=== PATIENT | female | born 1950 | race Caucasian/White ===

== ENCOUNTER 2017-02-14 15:21 | Inpatient (IN) ==
[2017-02-14] MEDS ORDERED: ASPIRIN 325 MG TABLET PO STA (17:04)
[2017-02-14] MEDS ORDERED: NITROGLYCERIN 2% OINT 1 INCH/GM PACK TOP STA (17:04)
[2017-02-14] MEDS ORDERED: ASPIRIN 325 MG TABLET ONE (17:33)
[2017-02-14] MEDS ORDERED: NITROGLYCERIN 2% OINT 1 INCH/GM PACK TOP ONE (17:33)
--- NOTE | 2017-02-14 17:46 | XRay Report ---
Exam: XR chest 2V Date: 02/14/2017 5:05 PM Indication: Chest pain Comparison: 03/10/2008 Technical: PA lateral Findings: Heart is normal in size.. No obvious infiltrate or effusion. External cardiac leads are present. Superimposes exam. ASVD is present. Minimal atelectatic change and interstitial thickening in the medial right base and lateral left base Impression: 1. Atelectatic change and/or infiltrate in the medial right base and platelike atelectatic change in the left base PROCEDURE INTERPRETED AT [facility] DEPARTMENT OF RADIOLOGY Final Report Signed by: Dr. Luther Jimenez
[2017-02-14 17:48] LABS: Basophils # 0.1 10*3/uL (0.0-0.2); Basophils % 0.6 % (0.0-0.8); Eosinophils # 0.4 10*3/uL (0.0-0.87); Eosinophils % 5.1 % (0.00-10.9); Immature Granulocytes % 0.5 %; Immature Granulocytes Absolute 0.04 #; Lymphocytes # 2.5 10*3/uL (1.4-4.0); Lymphocytes % 32.3 % (21.3-54.2); Mean Corpuscular HGB Conc 33.3 GM/DL (32-36); Mean Corpuscular Hemoglobin 29 PG (27-34); Monocytes # 0.6 10*3/uL (0.11-0.8); Monocytes % 7.1 % (1.7-12.7); Neutrophils # 4.3 10*3/uL (1.4-7.4); Neutrophils % 54.4 % (38.7-73.9); Platelet Count 236 T/CUMM (130-400); Red Blood Count 4.14 MC/CUMM (3.8-5.5); Red Cell Distribution Width 13.2 % (9.3-17.3); White Blood Count 7.9 T/CUMM (4-12)
[2017-02-14 18:04] LABS: Potassium 3.7 MMOL/L (3.5-5.1)
--- NOTE | 2017-02-14 18:50 | CT Report ---
Exam: CT chest PE study Date: 02/14/2017 6:17 PM Indication: Pleurodynia Comparison: Routine chest Technical: Images were obtained from the thoracic inlet through the lung bases with 80 cc of Omnipaque 350 with axial and coronal imaging available for review. Dose reduction was performed with decreasing kv and mA and automated exposure. 3-D MIP images were obtained Findings: Thyroid gland trachea and esophagus are otherwise unremarkable The pulmonary outflow tract, left and right proximal pulmonary arteries, first-order, second-order and third order branches reveal no evidence of pulmonary thromboemboli. The lungs are demonstrated with minimal atelectatic changes in the right middle lobe and the left posterior base has some atelectatic change or small platelike atelectasis some scarring suspected in the right base posteriorly. Vascular calcinosis in the aorta and mild cardiac enlargement. The mediastinum and bony structures are intact. Liver is unremarkable. Small calcification adjacent to the splenic hilus spleen is intact the proximal kidneys and adrenal glands gallbladder and pancreas and stomach reveal no acute findings. Degenerative spondylosis change present thoracic spine Impression: 1. No evidence of pulmonary thromboemboli with minimal atelectatic change or infiltrate in the right middle lobe and platelike atelectatic change in the right midlung zone and left posterior base with mild scarring also noted. Findings correlate with routine radiograph 2. Mild cardiomegaly without decompensation 3. Degenerative spondylosis changes thoracolumbar spine PROCEDURE INTERPRETED AT [facility] DEPARTMENT OF RADIOLOGY Final Report Signed by: Dr. Luther Jimenez
--- NOTE | 2017-02-14 19:28 | Emergency Department Note ---
Maik Romo Brooke, am scribing for, and in the presence of, Fab Barton MD 16 :55. Mick Romo Doug C, MD, personally performed the services described in this documentation, ascribed by Juli Pleitez in my presence, and it is both accurate and complete 815 . Arrival - Arrival Chief Complaint: Chest Pain Stated Complaint: CHEST PAIN ED Nursing Triage Note: C/o stabbing pain under left breast radiating to left shoulder-onset yesterday. Denies SOB or N/V. Denies pain at this time. Mode of Arrival: Ambulatory Limitations: No Limitations Source: Patient, RN Notes Reviewed Time Seen by Provider: 02/14/17 16:49 - History of Present Illness HPI Narrative: Patient 66-year-old white female presents emergency room complaining of left chest pain that started last night. Patient states that it kept her awake all night long as she had recurring intermittent substernal chest pain. Patient states she is a sharp stabbing pain in the center of her chest without radiation. States pain last up to 2 minutes of the time and is not associated with any nausea, vomiting, shortness of breath or dyspnea with exertion. Patient's never had any similar pain in the past and has no history of heart problems. She denies any leg pain or swelling. She states the pain is not worsened when she takes a deep breath or coughs. She denies any fever or significant cough as well. She has no neck, shoulder or arm discomfort. Date of Last Menstrual Period: hysterectomy Allergies/Adverse Reactions: Allergies Allergy/AdvReac Type Severity Reaction Status Date / Time No Known Allergies Allergy Verified 02/14/17 15:37 Home Medications: Home Medications Medication Instructions Recorded Confirmed Type Aspirin [Ecotrin] 81 mg PO DAILY 02/14/17 02/14/17 History Bisoprolol Fumarate/Hctz 1 each PO DAILY 02/14/17 02/14/17 History [Bisoprolol-Hctz 5-6.25 mg Tab] Citalopram [CeleXA] 40 mg PO DAILY 02/14/17 02/14/17 History Fluticasone/Vilanterol [Breo 1 puff INH DAILY 02/14/17 02/14/17 History Ellipta 200-25 Mcg INH] Gabapentin 300 mg PO TID 02/14/17 02/14/17 History Glyburide/Metformin HCl 1 each PO DAILY 02/14/17 02/14/17 History [Glyburide-Metformin 2.5-500 mg] Losartan/Hydrochlorothiazide 1 each PO DAILY 02/14/17 02/14/17 History [Hyzaar 100-25 Tablet] Lovastatin 40 mg PO DAILY 02/14/17 02/14/17 History Omeprazole 20 mg PO DAILY 02/14/17 02/14/17 History rOPINIRole [Requip] 0.25 mg PO TID 02/14/17 02/14/17 History Review of System - Review of System 12 point system: reviewed and no additional remarkable complaints except as stated - Review of System Constitutional: Absent: diaphoresis, fever Respiratory: Absent: cough, respiratory distress Cardiovascular: Present: chest pain (intermittent, left sided, sharp and stabbing.). Absent: dyspnea on exertion, edema Gastrointestinal: Absent: nausea Musculoskeletal: Absent: arm pain, neck pain Skin: Absent: rash Medical,Surgical,& Family Hx - Medical History Cardio: History of: Hypertension Endocrine: History of: Diabetes Mellitus (NIDDM), Dyslipidemia - Surgical History Reproductive Surgeries: Surgical HX of;: Hysterectomy - Social History Smoking Status: Never smoker Frequency of Alcohol Use: None Type of Drug Use: None Exam Vital Signs: Vital Signs Temperature 97.8 F 02/14/17 16:30 Pulse Rate 62 02/14/17 16:30 Respiratory Rate 17 02/14/17 17:37 Blood Pressure 135/80 02/14/17 16:30 O2 Sat by Pulse Oximetry 92 L 02/14/17 16:30 - General General appearance: alert, in no apparent distress - Head Head exam: Present: atraumatic, normocephalic - Eye Eye exam: Present: normal appearance, PERRL, EOMI - ENT ENT exam: Present: normal exam - Neck Neck exam: Present: normal inspection - Chest Chest inspection: Present: normal inspection, symmetric chest wall rise - Respiratory Respiratory exam: Present: normal lung sounds bilaterally - Cardiovascular Cardiovascular exam: Present: regular rate, normal rhythm, normal heart sounds - Abdominal Exam Abdominal exam: Present: soft. Absent: distention, tenderness - Extremities Exam Extremities exam: Present: normal inspection - Back Exam Back exam: Present: normal inspection - Neurological Exam Neurological exam: Present: alert, oriented X3, CN II-XII intact. Absent: motor sensory deficit - Psychiatric Psychiatric exam: Present: normal affect, normal mood - Skin Skin exam: Present: warm, dry, intact, normal color Course Course Narrative: Patient's clinical presentation, laboratory and radiographic findings were discussed with Dr. Marichuy Mejia. Patient will be admitted to the services of Dr. Omer who will see the patient here in the emergency room. Results - Labs CBC & BMP: 02/14/17 17:23 02/14/17 17:23 Lab Results: I have reviewed the patients labs Labs: Laboratory Tests 02/14/17 03 17:23 17:23 D-Dimer, Quantitative <= 0.5 Creatinine 0.50 L Calculated Osmolality 270.0 L Laboratory Tests 02/14/17 17:23 B-Natriuretic Peptide 35 - EKG EKG results: interpreted by ROSI, normal QRS, normal ST/T, no acute changes - Diagnostic Findings Procedure: Chest x-ray: report reviewed by me (1. Atelectatic change and/or infiltrate in the medial right base and platelike atelectatic change in the left base.), CT - chest: report reviewed by me (1. No evidence of pulmonary thromboemboli with minimal atelectatic change or infiltrate in the right middle lobe and platelike atelectatic change in the right midlung zone and left posterior base with mild scarring also noted. Findings correlate with routine radiograph. 2. Mild cardiomegaly without decompensation. 3. Degenerative spondylosis changes thoracolumbar spine.) Disposition Clinical Impression: Chest pain Case discussed with: patient, patient's family Disposition: Still a Patient Condition: Stable Time of Disposition: 19:28
--- NOTE | 2017-02-14 19:56 | Hospitalist History & Physical ---
Assessment and Plan (1) Chest pain Status: Acute Assessment and plan: to r/o MO. Patient has multiple risk factors for CAD.CT chest ruled out a PE. Plan Telemetry serial cardiac enzymes asa, statins resume home meds-ACEI, BBlocker PPIs nitrates lovenox Lipid, TSH, UA Echo Consider a stress test as outpatient Current Visit: Yes (2) Pneumonia involving right lung Status: Acute Assessment and plan: will treat as community acquired pneumonia CT chest showed no PE but showed a minimal atelectatic change or infiltrate in the right middle lobe and platelike atelectatic change in the right mid lung zone and left posterior base with mild scarring plan -IV Levaquin -Influenza A and B titres -Duonebs prn -blood cultures -sputum cultures - Current Visit: Yes (3) HTN (hypertension) Status: Acute Assessment and plan: will resume home meds Current Visit: Yes (4) IDDM (insulin dependent diabetes mellitus) Status: Acute Assessment and plan: will resume home meds, place on SSC insulin, accuchecks, get HbA1c level Current Visit: Yes (5) Dyslipidemia Status: Acute Assessment and plan: will resume statins get Lipids Current Visit: Yes (6) Asthma Status: Acute Assessment and plan: not in any acute exacerbation, will resume home meds Current Visit: Yes (7) Restless leg syndrome Status: Acute Assessment and plan: resume home meds Current Visit: Yes History of Present Illness Chief complaint: chest pain History of present illness: Ms. Morales is a 66 year old female with a history of HTN, NIDDM, rest leg syndrome,dyslipidemia, asthma who presented to the ER with chestpain. Patient was well until yesterday afternoon when she developed a chestpain. Pain is located in the left anterior wall, feels like something sticking into her heart , non radiating and as since been on and off. There are no known aggravating or relieving factors. There is no associated history of palpitation, nausea, vomiting, fever, cough, tingling sensation of her left arm and no diaphoresis. Patient gets SOB every now and then due to her underlying asthma. She denies a previous history of MO and has no known family history of CAD. No leg swelling and no bleeding problems. Patient was worried that pain did not go away so she decided to report to the ER.Upon arrival, troponin was negative, D-dimer was negative, CXR showed atelectatic change and or infiltrate in the medial right base and platelike atelectatic change in the left base.CT chest showed no PE but showed a minimal atelectatic change or infiltrate in the right middle lobe and platelike atelectatic change in the right mid lung zone and left posterior base with mild scarring.She was given aspirin and nitroglycerin and currently on admission for further evaluation. Home Medications Medication Instructions Recorded Confirmed Type Aspirin [Ecotrin] 81 mg PO DAILY 02/14/17 02/14/17 History Bisoprolol Fumarate/Hctz 1 each PO DAILY 02/14/17 02/14/17 History [Bisoprolol-Hctz 5-6.25 mg Tab] Citalopram [CeleXA] 40 mg PO DAILY 02/14/17 02/14/17 History Fluticasone/Vilanterol [Breo 1 puff INH DAILY 02/14/17 02/14/17 History Ellipta 200-25 Mcg INH] Gabapentin 300 mg PO TID 02/14/17 02/14/17 History Glyburide/Metformin HCl 1 each PO DAILY 02/14/17 02/14/17 History [Glyburide-Metformin 2.5-500 mg] Losartan/Hydrochlorothiazide 1 each PO DAILY 02/14/17 02/14/17 History [Hyzaar 100-25 Tablet] Lovastatin 40 mg PO DAILY 02/14/17 02/14/17 History Omeprazole 20 mg PO DAILY 02/14/17 02/14/17 History rOPINIRole [Requip] 0.25 mg PO TID 02/14/17 02/14/17 History Allergies Allergy/AdvReac Type Severity Reaction Status Date / Time No Known Allergies Allergy Verified 02/14/17 15:37 Medical,Surgical,& Family Hx - Medical History Cardio: History of: Hypertension Endocrine: History of: Diabetes Mellitus (NIDDM), Dyslipidemia - Surgical History Reproductive Surgeries: Surgical HX of;: Hysterectomy - Social History Smoking Status: Never smoker Frequency of Alcohol Use: None Type of Drug Use: None 12 point system: reviewed and no additional remarkable complaints except as stated Exam - Constitutional Vitals: Period Temp Pulse Resp BP Sys/Wilkins Pulse Ox Last 24 Hr 97.8 F-97.9 F 62-62 17-20 135-144/73-80 92-94 General appearance: no acute distress - Head Head exam: Present: normal inspection - Neck Neck exam: Present: normal inspection - Respiratory Respiratory exam: Present: clear to auscultation bilaterally - Cardiovascular Cardiovascular exam: Present: regular rate and rhythm - GI/Abdominal GI/Abdominal exam: Present: normal bowel sounds - Extremities Exam Extremities exam: Present: normal inspection - Back Exam Back exam: Present: normal inspection - Neurological Exam Neurological exam: Present: alert, oriented X3 - Psychiatric Psychiatric exam: Present: normal affect Results - Labs CBC & BMP: 02/14/17 17:23 02/14/17 17:23 Lab Results: I have reviewed the past 24 hour labs
[2017-02-14] MEDS ORDERED: ENOXAPARIN 40 MG/0.4 ML SYRINGE SUBCUT SCH (21:00)
[2017-02-14] MEDS ORDERED: NITROGLYCERIN SL 0.4 MG TABLET SL STA (21:28)
[2017-02-14] MEDS ORDERED: GLUCAGON 1 MG VIAL IM PRN ×2 (21:28)
[2017-02-14] MEDS ORDERED: ACETAMINOPHEN 325 MG TABLET PO PRN (21:28)
[2017-02-14] MEDS ORDERED: ZALEPLON 5 MG CAPSULE PO PRN (21:28)
[2017-02-14] MEDS ORDERED: ALBUTEROL/IPRATROPIUM 3 ML NEB RESP TX PRN (21:28)
[2017-02-14] MEDS ORDERED: DEXTROSE 50% 25 GM/50 ML VIAL IV PRN ×2 (21:28)
[2017-02-14] MEDS ORDERED: LEVOFLOXACIN INJ 750 MG in PREMIX 1 EACH IV SCH (22:00)
[2017-02-14] MEDS: GABAPENTIN 300 MG CAPSULE PO SCH (22:06)
[2017-02-14] MEDS: rOPINIRole 0.25 MG TABLET PO SCH (22:06)
[2017-02-14] MEDS: INSULIN REGULAR 100 UNIT/ML SUBCUT SCH (22:07)
[2017-02-14 23:02] LABS: Apearance,Urine CLEAR (Clear); Bilirubin,Urine Negative (Negative); Blood, Urine Negative (Negative); Glucose,Urine (UA) Negative (Negative); Ketones,Urine Negative (Negative); Nitrite,Urine Negative (Negative); Protein,Urine Negative; RBC,Urine <1 /HPF (0-4); Urine Color Straw (Yellow); Urine Specific Gravity 1.021 (1.001-1.035); Urine Urobilinogen < 2.0 EU/DL (0.2-1.0); WBC,Urine <1 /HPF (0-6)
[2017-02-14 23:21] LABS: Troponin I Only < 0.015 NG/ML (0.00-0.045)
[2017-02-14 23:28] LABS: Risk Ratio 2.89; Thyroid Stimulating Hormone 2.72 uIU/ml (0.358-3.74); VLDL CHOLESTEROL 22.2 MG/DL
[2017-02-15 04:39] LABS: Basophils % 0.3 % (0.0-0.8); Eosinophils # 0.1 10*3/uL (0.0-0.87); Eosinophils % 1.2 % (0.00-10.9); Hematocrit 35.9 VOL% (35.7-47.0); Hemoglobin 12.1 GM/DL (12.0-16.0); Immature Granulocytes % 0.6 %; Immature Granulocytes Absolute 0.06 #; Lymphocytes # 1.5 10*3/uL (1.4-4.0); Lymphocytes % 14.2 % (21.3-54.2); Mean Corpuscular HGB Conc 33.7 GM/DL (32-36); Mean Corpuscular Hemoglobin 29 PG (27-34); Mean Corpuscular Volume 84.9 FL (87-102); Mean Platelet Volume 10.9 FL (9.6-12.0); Monocytes # 0.9 10*3/uL (0.11-0.8); Monocytes % 7.8 % (1.7-12.7); Neutrophils # 8.3 10*3/uL (1.4-7.4); Neutrophils % 75.9 % (38.7-73.9); Platelet Count 242 T/CUMM (130-400); Red Blood Count 4.23 MC/CUMM (3.8-5.5); Red Cell Distribution Width 13.3 % (9.3-17.3); White Blood Count 10.9 T/CUMM (4-12)
[2017-02-15 05:07] LABS: Albumin 3.8 G/DL (3.4-5.0); Bilirubin,Total 0.9 MG/DL (0.2-1.0); Calcium 8.7 MG/DL (8.5-10.1); Total Protein 6.2 G/DL (6.4-8.3)
[2017-02-15 05:08] LABS: Potassium 3.8 MMOL/L (3.5-5.1)
[2017-02-15] MEDS: rOPINIRole 0.25 MG TABLET PO SCH ×2 (08:35→14:59)
[2017-02-15] MEDS: GABAPENTIN 300 MG CAPSULE PO SCH ×2 (08:35→14:59)
[2017-02-15] MEDS: INSULIN REGULAR 100 UNIT/ML SUBCUT SCH ×2 (08:44→12:05)
[2017-02-15] MEDS ORDERED: AZITHROMYCIN 250 MG TABLET PO ONE (08:55)
[2017-02-15] MEDS ORDERED: LOVASTATIN 20 MG TABLET PO SCH (09:00)
[2017-02-15] MEDS ORDERED: BISOPROLOL/HCTZ 5-6.25 MG TABLET PO SCH (09:00)
[2017-02-15] MEDS ORDERED: NON-FORMULARY MEDICATION (Fluticasone/Vilanterol [Breo Ellipta 200-25 Mcg Inh] 1 PUFF) INH SCH (09:00)
[2017-02-15] MEDS ORDERED: ASPIRIN EC 81 MG TABLET PO SCH (09:00)
[2017-02-15] MEDS ORDERED: PANTOPRAZOLE 40 MG TABLET PO SCH (09:00)
[2017-02-15] MEDS ORDERED: glyBURIDE/METFORMIN 2.5-500 MG TABLET PO SCH (09:00)
[2017-02-15] MEDS ORDERED: cefTRIAXone 1,000 MG in SODIUM CHLORIDE 0.9% 100 ML IV SCH (09:00)
[2017-02-15] MEDS ORDERED: CITALOPRAM 40 MG TABLET PO SCH (09:00)
[2017-02-15] MEDS ORDERED: LOSARTAN/HCTZ 50-12.5 MG TABLET PO SCH (09:00)
--- NOTE | 2017-02-15 09:21 | EKG Report ---
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
--- NOTE | 2017-02-15 10:13 | Hospitalist Progress Note ---
Assessment and Plan (1) Chest pain Status: Acute Current Visit: Yes (2) Pneumonia involving right lung Status: Acute Current Visit: Yes (3) HTN (hypertension) Status: Acute Current Visit: Yes (4) IDDM (insulin dependent diabetes mellitus) Status: Acute Current Visit: Yes Hospitalist: Subjective Interval history: No acute events overnight. Reports that her chest pain has eased up. Troponins have remained negative. Will order echo. Will also consult cardiology for possible stress test inpatient or outpatient. Also with pneumonia. Appears to have had a bad reaction to Levaquin. Will switch to rocpehin and azithromycin while inpatient. Exam - Constitutional Vitals: Period Temp Pulse Resp BP Sys/Wilkins Pulse Ox Last 24 Hr 96.0 F-98.2 F 51-58 16-20 91-150/49-70 91-99 General appearance: over weight - Head Head exam: Present: normal inspection, normocephalic - Eye Eye exam: Present: EOMI Pupils: Present: LEONELA - ENT ENT exam: Present: normal exam - Neck Neck exam: Present: normal inspection. Absent: tenderness - Respiratory Respiratory exam: Present: clear to auscultation bilaterally. Absent: rhonchi, wheezes - Cardiovascular Cardiovascular exam: Present: regular rate and rhythm - GI/Abdominal GI/Abdominal exam: Present: normal bowel sounds, soft. Absent: tenderness, rebound - Extremities Exam Extremities exam: Present: normal inspection - Back Exam Back exam: Present: normal inspection - Neurological Exam Neurological exam: Present: alert, oriented X3 - Psychiatric Psychiatric exam: Present: normal affect, normal mood - Skin Skin exam: Present: warm, intact Results - Labs CBC & BMP: 02/15/17 04:23 02/15/17 04:23
--- NOTE | 2017-02-15 11:12 | ECHO Report ---
Quentin Morales Exam Date: 02/15/2017 09:52 Referring Physician: Technologist: Gris Bee Age: 67 Ht (in): 62 Wt (lb): 136 Gender: F Exam Location: [facility] Echo Indications: Dyslipidemia, asthma, chest pain, Rt. lung pneumonia, Htn, IDDM BP: 91 / 49 HR: 58 Rhythm: Sinus Technical Quality: Fair IMPRESSIONS Normal left ventricular cavity size. Moderate concentric left ventricular hypertrophy with diastolic dysfunction. Left ventricular ejection fraction is estimated at 50-55 %. Normal right ventricular size. Normal right atrial size. Normal left atrial size. Mildly thickened mitral valve with mild mitral regurgitation. Mild aortic valve sclerosis without stenosis or regurgitation. Morphologically normal tricuspid valve. Tricuspid regurgitation velocities suggest a PAP of 19.9 mmHg + RAP. Mild tricuspid valve regurgitation. Morphologically normal pulmonic valve. Trace pulmonary valve regurgitation. No pericardial effusion. Normal size aortic root and proximal ascending aorta. MEASUREMENTS (Male / Female) Normal Values 2D ECHO LV Diastolic Diameter PLAX 3.6 cm 4.2 - 5.9 / 3.9 - 5.3 cm LV Systolic Diameter PLAX 2.5 cm LV Fractional Shortening PLAX 29.4 % IVS Diastolic Thickness 1.6 cm 0.6 - 1.0 / 0.6 - 0.9 cm LVPW Diastolic Thickness 1.4 cm 0.6 - 1.0 / 0.6 - 0.9 cm RV Internal Dim ED PLAX 2.9 cm Aortic Root Diameter 2.2 cm LA Systolic Diameter LX 4.0 cm 3.0 - 4.0 / 2.7 - 3.8 cm DOPPLER TR Peak Velocity 223.0 cm/s TR Peak Gradient 19.9 mmHg FINDINGS Left Ventricle Normal left ventricular cavity size. Moderate concentric left ventricular hypertrophy with diastolic dysfunction. Left ventricular ejection fraction is estimated at 50-55 %. Right Ventricle Normal right ventricular size. Right Atrium Normal right atrial size. Left Atrium Normal left atrial size. Mitral Valve Mildly thickened mitral valve with mild mitral regurgitation. Aortic Valve Mild aortic valve sclerosis without stenosis or regurgitation. Tricuspid Valve Morphologically normal tricuspid valve. Mild tricuspid valve regurgitation. Tricuspid regurgitation velocities suggest a PAP of 19.9 mmHg + RAP. Pulmonic Valve Morphologically normal pulmonic valve. Trace pulmonary valve regurgitation. Pericardium No pericardial effusion. Aorta Normal size aortic root and proximal ascending aorta. Braeden Monet MD (Electronically Signed) Final Date: 15 February 2017 11:11
--- NOTE | 2017-02-15 11:52 | Cardiology Consult Note ---
Assessment and Plan (1) Abnormal ECG Status: Acute Current Visit: Yes (2) Chest pain Status: Acute Assessment and plan: This patient has atypical chest pain with risk factors for premature coronary disease. We will check 1 more set of isoenzymes and if her troponin is negative she can be discharged to follow-up with me in 1 month with a stress nuclear study for review. She might benefit from a course of nonsteroidals. His pain sounds musculoskeletal/pleuritic to me. Current Visit: Yes (3) HTN (hypertension) Status: Acute Current Visit: Yes (4) IDDM (insulin dependent diabetes mellitus) Status: Acute Current Visit: Yes History of Present Illness - Data of Consult Patient: new to practice - Consult Narrative Reason for consult: Atypical chest pain History of present illness: Ms. Morales is a 67 year old female who has a history of hypertension and diabetes as well as dyslipidemia and presents with a one-week history of atypical chest pain which she describes as a point tenderness in the left parasternal region which is episodic and lancinating and sharp and not anginal in nature. The pain is not related to exertion or activity. She has no limitation related to exertional ability and is active. She has had 2 negative troponins and her EKG is unrevealing. She has not had recent fever chills cough or sputum. She denies a history of blood clots or swelling of the leg or immobility. She has not had any recent fever or chills. She has had cold symptoms but no palpitations or syncope. CC: Renuka Bradley MD - Home Medications and Allergies Home Medications: Home Medications Medication Instructions Recorded Confirmed Type Aspirin [Ecotrin] 81 mg PO DAILY 02/14/17 02/14/17 History Bisoprolol Fumarate/Hctz 1 each PO DAILY 02/14/17 02/14/17 History [Bisoprolol-Hctz 5-6.25 mg Tab] Citalopram [CeleXA] 40 mg PO DAILY 02/14/17 02/14/17 History Fluticasone/Vilanterol [Breo 1 puff INH DAILY 02/14/17 02/14/17 History Ellipta 200-25 Mcg INH] Gabapentin 300 mg PO TID 02/14/17 02/14/17 History Glyburide/Metformin HCl 1 each PO DAILY 02/14/17 02/14/17 History [Glyburide-Metformin 2.5-500 mg] Losartan/Hydrochlorothiazide 1 each PO DAILY 02/14/17 02/14/17 History [Hyzaar 100-25 Tablet] Lovastatin 40 mg PO DAILY 02/14/17 02/14/17 History Omeprazole 20 mg PO DAILY 02/14/17 02/14/17 History rOPINIRole [Requip] 0.25 mg PO TID 02/14/17 02/14/17 History Allergies/Adverse Reactions: Allergies Allergy/AdvReac Type Severity Reaction Status Date / Time No Known Allergies Allergy Verified 02/14/17 15:37 Medical,Surgical,& Family Hx - Medical History Cardio: History of: Hypertension Endocrine: History of: Diabetes Mellitus (NIDDM), Dyslipidemia - Surgical History Reproductive Surgeries: Surgical HX of;: Hysterectomy - Social History Smoking Status: Never smoker Frequency of Alcohol Use: None Type of Drug Use: None Physical Examination Vital Signs Temp Pulse Resp BP Pulse Ox 97.9 F 62 18 144/73 94 L 02/14/17 15:33 02/14/17 15:33 02/14/17 15:33 02/14/17 15:33 02/14/17 15:33 Other: Physical examination: General: The patient is awake and alert and oriented -3. Mood and affect are normal. HEENT: Normocephalic, sclera are clear there are no lid xanthelasmas noted. Oral mucosa is free of cyanosis or pallor. Neck: The neck is supple without JVD. Carotid upstrokes are normal volume and amplitude. There is no audible bruit. There is no palpable thyroid. Trachea is midline. Chest: Lungs: The patient is comfortable at rest without intercostal retractions or abdominal breathing. There are no adventitial sounds rales rubs rhonchi or wheezes noted. Cardiovascular: The PMI is nondisplaced. No palpable thrill S3 or S4. There is a regular rate and rhythm with no murmur rub or gallop noted. Dorsalis pedis posterior tibial and femoral pulses are 2+ and equal bilaterally. Abdomen: Abdomen is soft and nontender with normal active bowel sounds. There is no palpable mass or organomegaly noted. There is no midline bruit. Extremities exam: There is no cyanosis clubbing or edema. Skin: Skin is warm and dry without ecchymosis or urticaria or skin rash. There are no palpable nodules. Musculoskeletal: There is no kyphosis or scoliosis noted. Result/EKG - Labs CBC & BMP: 02/15/17 04:23 02/15/17 04:23 Labs: Laboratory Results - last 24 hr 02/14/17 02/14/17 02/14/17 21:46 21:58 22:39 WBC RBC Hgb Hct MCV MCH MCHC RDW Plt Count MPV Neut % (Auto) Lymph % (Auto) [place] % (Auto) Eos % (Auto) Baso % (Auto) Neut # (Auto) Lymph # (Auto) [place] # (Auto) Eos # (Auto) Baso # (Auto) Immature Gran % Nucleated RBC % Immature Gran # Nucleated RBCs # Sodium Potassium Chloride Carbon Dioxide Anion Gap BUN Creatinine GFR Calculation BUN/Creatinine Ratio Glucose POC Glucose 107 H Hemoglobin A1c Calculated Osmolality Calcium Total Bilirubin AST ALT Alkaline Phosphatase Total Creatine Kinase CK-MB (CK-2) Troponin I < 0.015 Total Protein Albumin Globulin Albumin/Globulin Ratio Triglycerides Cholesterol LDL Cholesterol VLDL Cholesterol HDL Cholesterol Heart Disease Risk Ratio TSH 3rd Generation Urine Color Straw Urine Appearance Clear Urine pH 7.0 Ur Specific [place] 1.021 Urine Protein Negative Urine Glucose (UA) Negative Urine Ketones Negative Urine Blood Negative Urine Nitrate Negative Urine Bilirubin Negative Urine Urobilinogen < 2.0 H Urine Leukocytes Negative Urine RBC <1 Urine WBC <1 Ur Culture Indicated? Not indicated 02/14/17 02/14/17 02/14/17 22:39 22:39 22:39 WBC RBC Hgb Hct MCV MCH MCHC RDW Plt Count MPV Neut % (Auto) Lymph % (Auto) [place] % (Auto) Eos % (Auto) Baso % (Auto) Neut # (Auto) Lymph # (Auto) [place] # (Auto) Eos # (Auto) Baso # (Auto) Immature Gran % Nucleated RBC % Immature Gran # Nucleated RBCs # Sodium Potassium Chloride Carbon Dioxide Anion Gap BUN Creatinine GFR Calculation BUN/Creatinine Ratio Glucose POC Glucose Hemoglobin A1c 6.9 H Calculated Osmolality Calcium Total Bilirubin AST ALT Alkaline Phosphatase Total Creatine Kinase 41 CK-MB (CK-2) < 1.0 Troponin I < 0.015 Total Protein Albumin Globulin Albumin/Globulin Ratio Triglycerides 111 Cholesterol 153 LDL Cholesterol 92.0 VLDL Cholesterol 22.2 HDL Cholesterol 53 Heart Disease Risk Ratio 2.89 TSH 3rd Generation 2.720 Urine Color Urine Appearance Urine pH Ur Specific [place] Urine Protein Urine Glucose (UA) Urine Ketones Urine Blood Urine Nitrate Urine Bilirubin Urine Urobilinogen Urine Leukocytes Urine RBC Urine WBC Ur Culture Indicated? 02/15/17 02/15/17 02/15/17 04:23 04:23 07:46 WBC 10.9 D RBC 4.23 Hgb 12.1 Hct 35.9 MCV 84.9 L MCH 29 MCHC 33.7 RDW 13.3 Plt Count 242 MPV 10.9 Neut % (Auto) 75.9 H Lymph % (Auto) 14.2 L [place] % (Auto) 7.8 Eos % (Auto) 1.2 Baso % (Auto) 0.3 Neut # (Auto) 8.3 H Lymph # (Auto) 1.5 [place] # (Auto) 0.9 H Eos # (Auto) 0.1 Baso # (Auto) 0.0 Immature Gran % 0.6 Nucleated RBC % 0.0 Immature Gran # 0.06 Nucleated RBCs # 0.00 Sodium 136 Potassium 3.8 Chloride 98 Carbon Dioxide 28 Anion Gap 13.8 BUN 13 Creatinine 0.60 GFR Calculation 88 BUN/Creatinine Ratio 21.00 H Glucose 157 H POC Glucose 103 Hemoglobin A1c Calculated Osmolality 274.0 Calcium 8.7 Total Bilirubin 0.90 AST 7 ALT 14 Alkaline Phosphatase 62 Total Creatine Kinase CK-MB (CK-2) Troponin I Total Protein 6.2 L Albumin 3.8 Globulin 2.4 Albumin/Globulin Ratio 1.5 Triglycerides Cholesterol LDL Cholesterol VLDL Cholesterol HDL Cholesterol Heart Disease Risk Ratio TSH 3rd Generation Urine Color Urine Appearance Urine pH Ur Specific [place] Urine Protein Urine Glucose (UA) Urine Ketones Urine Blood Urine Nitrate Urine Bilirubin Urine Urobilinogen Urine Leukocytes Urine RBC Urine WBC Ur Culture Indicated? - EKG EKG results: interpreted by me (Sinus rhythm with equivocal changes suggesting old inferior [place] with minor nonspecific ST-T change)
[2017-02-15 12:01] VITALS: BP 130/60
--- NOTE | 2017-02-15 14:39 | Discharge Summary ---
Hospital Course - Hospital Course Hospital Course: Ms. Morales is a 66 year old female with a history of HTN, NIDDM, rest leg syndrome,dyslipidemia, asthma who presented to the ER with chestpain. Patient was well until the afternoon before when she developed a chestpain. Pain was located in the left anterior wall, felt like something sticking into her heart, non radiating and has since been on and off. There were no known aggravating or relieving factors. There was no associated history of palpitation, nausea, vomiting, fever, cough, tingling sensation of her left arm and no diaphoresis. Patient gets SOB every now and then due to her underlying asthma. She denies a previous history of LA and has no known family history of CAD. In the Emergency Department, troponin was negative, D-dimer was negative, CXR showed atelectatic change and or infiltrate in the medial right base and platelike atelectatic change in the left base. CT chest showed no PE but showed a minimal atelectatic change or infiltrate in the right middle lobe and platelike atelectatic change in the right mid lung zone and left posterior base with mild scarring. She was given aspirin and nitroglycerin. She was admitted to the hospitalist service for chest pain, rule out acute coronary syndrome. This morning patient is pain free. Serial troponins are negative. Cardiology was consulted. She will follow-up with cardiology in one month for possible stress testing. She has now reached maximum benefit of inpatient stay and will be discharged home. She will be discharged on azithromycin for pneumonia treatment. - Time spent with patient Time with patient DS: Less than 30 minutes Diagnosis - Discharge Diagnosis (1) Chest pain Status: Resolved (2) Pneumonia involving right lung Status: Acute (3) HTN (hypertension) Status: Chronic (4) IDDM (insulin dependent diabetes mellitus) Status: Chronic Specialty Discharge - Follow Up or Referrals Follow up with: Braeden Monet MD [Physician] - 1 Month Discharge Plan - Discharge Data Condition at Discharge: Stable Discharge Diet: advance to your usual diet Activity: resume usual activities as tolerated Hygiene: no restrictions Weight Bearing at Discharge: weight bear as tolerated Driving: no restrictions Contact your physician if you experience:: fever over 101, Nausea/Vomiting, pain uncontrolled by pain medications - Discharge Medications New Azithromycin Tab [Zithromax Tab] 250 mg PO DAILY #4 tablet Continue Glyburide/Metformin HCl [Glyburide-Metformin 2.5-500 mg] 1 each PO DAILY Gabapentin 300 mg PO TID Fluticasone/Vilanterol [Breo Ellipta 200-25 Mcg INH] 1 puff INH DAILY rOPINIRole [Requip] 0.25 mg PO TID Omeprazole 20 mg PO DAILY Lovastatin 40 mg PO DAILY Losartan/Hydrochlorothiazide [Hyzaar 100-25 Tablet] 1 each PO DAILY Aspirin [Ecotrin] 81 mg PO DAILY Bisoprolol Fumarate/Hctz [Bisoprolol-Hctz 5-6.25 mg Tab] 1 each PO DAILY Citalopram [CeleXA] 40 mg PO DAILY - Follow Up or Referral - Forms/Instructions Exam - Constitutional Vitals: Period Temp Pulse Resp BP Sys/Wilkins Pulse Ox Last 24 Hr 96.0 F-98.5 F 51-58 16-22 91-150/49-70 91-99 General appearance: over weight - Head Head exam: Present: normocephalic, atraumatic - Eye Eye exam: Present: EOMI Pupils: Present: LEONELA - ENT ENT exam: Present: normal exam - Neck Neck exam: Present: normal inspection. Absent: tenderness - Respiratory Respiratory exam: Present: clear to auscultation bilaterally. Absent: rhonchi, wheezes - Cardiovascular Cardiovascular exam: Present: regular rate and rhythm - GI/Abdominal GI/Abdominal exam: Present: normal bowel sounds, soft. Absent: tenderness, rebound - Extremities Exam Extremities exam: Present: normal inspection - Back Exam Back exam: Present: normal inspection - Neurological Exam Neurological exam: Present: alert, oriented X3 - Psychiatric Psychiatric exam: Present: normal affect, normal mood - Skin Skin exam: Present: warm, intact Discharge Results Procedures and tests throughout hospitalization: Pending Orders 02/14/17 21:28 Influenza A & B Antigen Panel Routine Sputum Culture and Gram Stain Routine 02/14/17 22:38 Blood Culture Routine Labs on day of discharge: Labs from last 24 hours 02/15/17 02/15/17 02/15/17 12:19 07:46 04:23 WBC RBC Hgb Hct MCV MCH MCHC RDW Plt Count MPV Neut % (Auto) Lymph % (Auto) [place] % (Auto) Eos % (Auto) Baso % (Auto) Neut # (Auto) Lymph # (Auto) [place] # (Auto) Eos # (Auto) Baso # (Auto) Immature Gran % Nucleated RBC % Immature Gran # Nucleated RBCs # Sodium 136 Potassium 3.8 Chloride 98 Carbon Dioxide 28 Anion Gap 13.8 BUN 13 Creatinine 0.60 GFR Calculation 88 BUN/Creatinine Ratio 21.00 H Glucose 157 H POC Glucose 103 Hemoglobin A1c Calculated Osmolality 274.0 Calcium 8.7 Total Bilirubin 0.90 AST 7 ALT 14 Alkaline Phosphatase 62 Total Creatine Kinase CK-MB (CK-2) Troponin I < 0.015 Total Protein 6.2 L Albumin 3.8 Globulin 2.4 Albumin/Globulin Ratio 1.5 Triglycerides Cholesterol LDL Cholesterol VLDL Cholesterol HDL Cholesterol Heart Disease Risk Ratio TSH 3rd Generation Urine Color Urine Appearance Urine pH Ur Specific [place] Urine Protein Urine Glucose (UA) Urine Ketones Urine Blood Urine Nitrate Urine Bilirubin Urine Urobilinogen Urine Leukocytes Urine RBC Urine WBC Ur Culture Indicated? 02/15/17 02/14/17 02/14/17 04:23 22:39 22:39 WBC 10.9 D RBC 4.23 Hgb 12.1 Hct 35.9 MCV 84.9 L MCH 29 MCHC 33.7 RDW 13.3 Plt Count 242 MPV 10.9 Neut % (Auto) 75.9 H Lymph % (Auto) 14.2 L [place] % (Auto) 7.8 Eos % (Auto) 1.2 Baso % (Auto) 0.3 Neut # (Auto) 8.3 H Lymph # (Auto) 1.5 [place] # (Auto) 0.9 H Eos # (Auto) 0.1 Baso # (Auto) 0.0 Immature Gran % 0.6 Nucleated RBC % 0.0 Immature Gran # 0.06 Nucleated RBCs # 0.00 Sodium Potassium Chloride Carbon Dioxide Anion Gap BUN Creatinine GFR Calculation BUN/Creatinine Ratio Glucose POC Glucose Hemoglobin A1c 6.9 H Calculated Osmolality Calcium Total Bilirubin AST ALT Alkaline Phosphatase Total Creatine Kinase 41 CK-MB (CK-2) < 1.0 Troponin I < 0.015 Total Protein Albumin Globulin Albumin/Globulin Ratio Triglycerides Cholesterol LDL Cholesterol VLDL Cholesterol HDL Cholesterol Heart Disease Risk Ratio TSH 3rd Generation Urine Color Urine Appearance Urine pH Ur Specific [place] Urine Protein Urine Glucose (UA) Urine Ketones Urine Blood Urine Nitrate Urine Bilirubin Urine Urobilinogen Urine Leukocytes Urine RBC Urine WBC Ur Culture Indicated? 02/14/17 02/14/17 02/14/17 22:39 22:39 21:58 WBC RBC Hgb Hct MCV MCH MCHC RDW Plt Count MPV Neut % (Auto) Lymph % (Auto) [place] % (Auto) Eos % (Auto) Baso % (Auto) Neut # (Auto) Lymph # (Auto) [place] # (Auto) Eos # (Auto) Baso # (Auto) Immature Gran % Nucleated RBC % Immature Gran # Nucleated RBCs # Sodium Potassium Chloride Carbon Dioxide Anion Gap BUN Creatinine GFR Calculation BUN/Creatinine Ratio Glucose POC Glucose Hemoglobin A1c Calculated Osmolality Calcium Total Bilirubin AST ALT Alkaline Phosphatase Total Creatine Kinase CK-MB (CK-2) Troponin I < 0.015 Total Protein Albumin Globulin Albumin/Globulin Ratio Triglycerides 111 Cholesterol 153 LDL Cholesterol 92.0 VLDL Cholesterol 22.2 HDL Cholesterol 53 Heart Disease Risk Ratio 2.89 TSH 3rd Generation 2.720 Urine Color Straw Urine Appearance Clear Urine pH 7.0 Ur Specific [place] 1.021 Urine Protein Negative Urine Glucose (UA) Negative Urine Ketones Negative Urine Blood Negative Urine Nitrate Negative Urine Bilirubin Negative Urine Urobilinogen < 2.0 H Urine Leukocytes Negative Urine RBC <1 Urine WBC <1 Ur Culture Indicated? Not indicated 02/14/17 21:46 WBC RBC Hgb Hct MCV MCH MCHC RDW Plt Count MPV Neut % (Auto) Lymph % (Auto) [place] % (Auto) Eos % (Auto) Baso % (Auto) Neut # (Auto) Lymph # (Auto) [place] # (Auto) Eos # (Auto) Baso # (Auto) Immature Gran % Nucleated RBC % Immature Gran # Nucleated RBCs # Sodium Potassium Chloride Carbon Dioxide Anion Gap BUN Creatinine GFR Calculation BUN/Creatinine Ratio Glucose POC Glucose 107 H Hemoglobin A1c Calculated Osmolality Calcium Total Bilirubin AST ALT Alkaline Phosphatase Total Creatine Kinase CK-MB (CK-2) Troponin I Total Protein Albumin Globulin Albumin/Globulin Ratio Triglycerides Cholesterol LDL Cholesterol VLDL Cholesterol HDL Cholesterol Heart Disease Risk Ratio TSH 3rd Generation Urine Color Urine Appearance Urine pH Ur Specific [place] Urine Protein Urine Glucose (UA) Urine Ketones Urine Blood Urine Nitrate Urine Bilirubin Urine Urobilinogen Urine Leukocytes Urine RBC Urine WBC Ur Culture Indicated? DS: Provider Date of admission: 02/14/17 20:05 Primary care physician: . No PCP Attending physician on admission: Renuka Bradley MD Consults: 02/15/17 10:10 Consult to Physician [CONS] Routine Comment: CP, trop neg, stress test inpt vs outpt Consulting Provider: Braeden Monet Person Notified: Dr. Monet Date Notified: 02/15/17 Time Notified: 10:51 Discharging clinician: Renuka Bradley MD
[2017-02-16] MEDS ORDERED: AZITHROMYCIN 250 MG TABLET PO SCH (09:00)
== END 2017-02-15 15:30 | disposition home or self-care (01) | DRG 195 ==
LOC: N.ED 15:21 → N.EDINP 20:05 → N.TELES 21:19
PROVIDERS: ADMIT Internal Medicine; ATTEND Internal Medicine

== ENCOUNTER 2020-12-27 08:41 | Inpatient (IN) ==
[2020-12-27] MEDS ORDERED: DEXTROSE 50% 25 GM/50 ML VIAL IV PRN (08:50)
[2020-12-27] MEDS ORDERED: GLUCAGON 1 MG VIAL IM PRN (08:50)
[2020-12-27] MEDS ORDERED: SODIUM CHLORIDE 0.9% 1,000 ML IV SCH (09:00)
[2020-12-27 09:31] LABS: Basophils % 0.2 % (0.0-0.8); Hematocrit 36.8 VOL% (35.7-47.0); Hemoglobin 12.1 GM/DL (12.0-16.0); Immature Granulocytes % 0.8 %; Immature Granulocytes Absolute 0.05 #; Lymphocytes # 1.3 10*3/uL (1.4-4.0); Lymphocytes % 19.6 % (21.3-54.2); Mean Corpuscular HGB Conc 32.9 GM/DL (32-36); Mean Corpuscular Volume 88.5 FL (87-102); Mean Platelet Volume 9.9 FL (9.6-12.0); Monocytes % 4.3 % (1.7-12.7); Neutrophils % 75.1 % (38.7-73.9); Platelet Count 253 T/CUMM (130-400); Red Blood Count 4.16 MC/CUMM (3.8-5.5); Red Cell Distribution Width 13.4 % (9.3-17.3); White Blood Count 6.5 T/CUMM (4-12)
[2020-12-27 09:51] LABS: Albumin 3.7 G/DL (3.4-5.0); Bilirubin,Total 0.6 MG/DL (0.2-1.0); Calcium 9.4 MG/DL (8.5-10.1); Potassium 3.8 MMOL/L (3.5-5.1); Total Protein 7.2 G/DL (6.4-8.3)
[2020-12-27] MEDS: INSULIN REGULAR 100 UNIT/ML SUBCUT SCH ×3 (11:36→20:36)
[2020-12-27] MEDS ORDERED: NITROGLYCERIN SL 0.4 MG TABLET SL PRN (11:38)
[2020-12-27] MEDS ORDERED: CLORAZEPATE 3.75 MG TABLET PO PRN (11:38)
[2020-12-27] MEDS ORDERED: MORPHINE 4 MG/1 ML VIAL IV PRN (11:38)
[2020-12-27] MEDS ORDERED: ZALEPLON 5 MG CAPSULE PO PRN (11:38)
[2020-12-27 11:41] LABS: ABG Base Excess 5.4 MMOL/L (-2.5-2.5); ABG HCO3 30.6 MMOL/L (20-26); ABG Oxygen Saturation 89.6 % (95-100); ABG PCO2 47.1 MM HG (35-48)
[2020-12-27] MEDS: CHLORHEXIDINE 4% SOLN 118 ML BOTTLE TOP SCH ×3 (11:49→20:35)
[2020-12-27] MEDS: CHLORHEXIDINE 0.12% ORAL RINSE 60 ML BOTTLE SWISH/SPIT SCH ×2 (11:49→20:34)
[2020-12-27] MEDS: rOPINIRole 0.25 MG TABLET PO SCH ×2 (15:01→20:33)
[2020-12-27] MEDS: GABAPENTIN 400 MG CAPSULE PO SCH ×2 (15:01→20:33)
[2020-12-27] MEDS ORDERED: DOXEPIN 25 MG CAPSULE PO SCH (21:00)
[2020-12-28] MEDS ORDERED: PAPAVERINE 60 MG/2 ML VIAL ONE (04:21)
[2020-12-28] MEDS ORDERED: VANCOMYCIN 1,000 MG VIAL ONE (04:22)
[2020-12-28] MEDS ORDERED: VANCOMYCIN 500 MG VIAL ONE (04:22)
[2020-12-28] MEDS ORDERED: CEFUROXIME INJ 1,500 MG in SYRINGE 1 EACH IV ONE (05:00)
[2020-12-28] MEDS ORDERED: DIAZEPAM 5 MG TABLET PO ONE (05:35)
[2020-12-28] MEDS ORDERED: MIDAZOLAM 10 MG/2 ML VIAL ONE ×4 (06:00→08:40)
[2020-12-28] MEDS ORDERED: LIDOCAINE 2% 5 ML VIAL ONE ×2 (06:01→10:45)
[2020-12-28] MEDS ORDERED: VECURONIUM 10 MG VIAL IV ONE ×4 (06:01→08:41)
[2020-12-28] MEDS ORDERED: CALCIUM CHLORIDE 1,000 MG/10 ML VIAL IV ONE ×2 (06:01→09:11)
[2020-12-28] MEDS ORDERED: ETOMIDATE 40 MG/20 ML VIAL IV ONE (06:01)
[2020-12-28] MEDS ORDERED: SUFentanil 250 MCG/5 ML AMP ONE ×2 (06:01)
[2020-12-28] MEDS ORDERED: AMINOCAPROIC ACID 5,000 MG/20 ML VIAL ONE ×4 (06:01)
[2020-12-28] MEDS ORDERED: SODIUM CHLORIDE 0.9% 1,000 ML IV ONE (06:25)
[2020-12-28] MEDS ORDERED: SEVOFLURANE 1 UNIT/15 MINUTE INH ONE ×14 (06:25→10:47)
[2020-12-28] MEDS ORDERED: SODIUM CHLORIDE 0.9% 0 ML IV ONE (06:25)
[2020-12-28] MEDS ORDERED: SODIUM CHLORIDE 0.9% 250 ML IV ONE (06:25)
[2020-12-28] MEDS ORDERED: LACTATED RINGERS 1,000 ML IV ONE (06:25)
[2020-12-28] MEDS ORDERED: PHENYLEPHRINE DRIP 20 MG/250 ML PREMIX IV ONE (06:25)
[2020-12-28] MEDS ORDERED: PANTOPRAZOLE 40 MG TABLET PO ONE (06:30)
[2020-12-28] MEDS ORDERED: MINERAL OIL/PETROLATUM OPH OINT 3.5 GM TUBE ONE (06:39)
[2020-12-28] MEDS: INSULIN REGULAR 100 UNIT/ML SUBCUT SCH (07:30)
[2020-12-28 07:44] LABS: ABG Base Excess 3.1 MMOL/L (-2.5-2.5); ABG HCO3 27.2 MMOL/L (20-26); ABG Oxygen Saturation 99.3 % (95-100); ABG PCO2 43.1 MM HG (35-48); ABG PH 7.419 (7.35-7.45); ABG TCO2 25.2 MMOL/L (23-27); Glucose Heart Surgery 106 MG/DL (74-106); Hematocrit Heart Surgery 32.6 PERCENT (37-47); Hemoglobin Heart Surgery 10.6 G/DL (12.0-16.0); Ionized Calcium Arterial 1.15 MMOL/L (1.21-1.46); PCO2 Patient Temp Arterial 43.1 MMHG; PH Patient Temp Arterial 7.419; Patient Temperature 37 CELCIUS; Potassium Heart/CVR 3.4 MMOL/L (3.5-5.1); Sodium Heart/CVR 143 MMOL/L (135-145)
[2020-12-28 08:55] LABS: Amorphous Crystals,Urine Few /HPF (Few); Bilirubin,Urine Negative (Negative); Blood, Urine Negative (Negative); Glucose,Urine (UA) Negative (Negative); Ketones,Urine Negative (Negative); Mucus,Urine Occasional /LPF (Occasional); Nitrite,Urine Negative (Negative); Protein,Urine Negative; RBC,Urine <1 /HPF (0-4); Squamous Epithelial Cell,Urine Occasional /HPF (0-10); Urine Appearance CLEAR (Clear); Urine Color Yellow (Yellow); Urine Specific Gravity 1.013 (1.001-1.035); Urine Urobilinogen < 2.0 EU/DL (0.2-1.0)
[2020-12-28] MEDS: GABAPENTIN 400 MG CAPSULE PO SCH (09:00)
[2020-12-28] MEDS: rOPINIRole 0.25 MG TABLET PO SCH (09:00)
[2020-12-28] MEDS ORDERED: ASPIRIN EC 81 MG TABLET PO SCH (09:00)
[2020-12-28] MEDS ORDERED: METOPROLOL TARTRATE 5 MG/5 ML VIAL IV ONE (09:11)
[2020-12-28 09:13] LABS: Hematocrit Heart Surgery 27.2 PERCENT (37-47); Hemoglobin Heart Surgery 8.7 G/DL (12.0-16.0); PCO2 Patient Temp Venous 36.4 MM HG; PH Patient Temp Venous 7.443; PO2 Patient Temp Venous 40.9 MM HG; Potassium Heart/CVR 4.3 MMOL/L (3.5-5.1); VBG Base Excess 1.1 MEQ/L (0-4); VBG HCO3 25.2 MEQ/L (24-28); VBG Oxygen Saturation 85.3 %; VBG PH 7.4; VBG PO2 50.2 MMHG (17-40); VBG Total CO2 24.1 MMOL/L
[2020-12-28] MEDS ORDERED: SODIUM CHLORIDE 0.9% 100 ML IV ONE (09:17)
[2020-12-28] MEDS: CHLORHEXIDINE 0.12% ORAL RINSE 60 ML BOTTLE SWISH/SPIT SCH ×2 (09:30→21:22)
[2020-12-28 09:46] LABS: Hematocrit Heart Surgery 29.2 PERCENT (37-47); Hemoglobin Heart Surgery 9.4 G/DL (12.0-16.0); PCO2 Patient Temp Venous 38.3 MM HG; PH Patient Temp Venous 7.435; PO2 Patient Temp Venous 38.3 MM HG; Potassium Heart/CVR 3.7 MMOL/L (3.5-5.1); VBG Base Excess 1.7 MEQ/L (0-4); VBG HCO3 25.6 MEQ/L (24-28); VBG Oxygen Saturation 81.6 %; VBG PCO2 44.3 MMHG (41-51); VBG PH 7.392; VBG PO2 47.2 MMHG (17-40); VBG Total CO2 24.7 MMOL/L
[2020-12-28 10:18] LABS: Hematocrit Heart Surgery 30.5 PERCENT (37-47); Hemoglobin Heart Surgery 9.9 G/DL (12.0-16.0); PCO2 Patient Temp Venous 38.7 MM HG; PH Patient Temp Venous 7.452; PO2 Patient Temp Venous 40.9 MM HG; Potassium Heart/CVR 3.7 MMOL/L (3.5-5.1); VBG HCO3 26.7 MEQ/L (24-28); VBG Oxygen Saturation 77.1 %; VBG PCO2 38.7 MMHG (41-51); VBG PH 7.452; VBG PO2 40.9 MMHG (17-40); VBG Total CO2 24.7 MMOL/L
[2020-12-28] MEDS ORDERED: NITROPRUSSIDE 50 MG/2 ML VIAL ONE (10:30)
[2020-12-28] MEDS ORDERED: POTASSIUM CHLORIDE RIDER 100 ML IV ONE (10:30)
[2020-12-28] MEDS ORDERED: PHENYLEPHRINE DRIP 40 MG/250 ML PREMIX IV ONE (10:31)
[2020-12-28] MEDS ORDERED: CALCIUM CHLORIDE 1,000 MG/10 ML SYRINGE IV ONE (10:31)
[2020-12-28] MEDS ORDERED: ALBUMIN 5% 12.5 GM/250 ML VIAL IV ONE ×2 (10:32→10:46)
[2020-12-28 10:43] LABS: ABG Base Excess -0.1 MMOL/L (-2.5-2.5); ABG HCO3 24.1 MMOL/L (20-26); ABG Oxygen Saturation 98.1 % (95-100); ABG PCO2 37.5 MM HG (35-48); ABG PH 7.426 (7.35-7.45); ABG PO2 222.7 MM HG (80-95); ABG TCO2 25.3 MMOL/L (23-27); Glucose Heart Surgery 187 MG/DL (74-106); Hemoglobin Heart Surgery 9.1 G/DL (12.0-16.0); Ionized Calcium Arterial 1.25 MMOL/L (1.21-1.46); PCO2 Patient Temp Arterial 37.5 MMHG; PH Patient Temp Arterial 7.426; PO2 Patient Temp Arterial 222.7 MM HG; Patient Temperature 37 CELCIUS; Potassium Heart/CVR 3.2 MMOL/L (3.5-5.1); Sodium Heart/CVR 136 MMOL/L (135-145)
[2020-12-28] MEDS ORDERED: MAGNESIUM SULFATE 5 GM/10 ML VIAL IV ONE (10:45)
[2020-12-28] MEDS ORDERED: methylPREDNISolone SOD SUC 1,000 MG/8 ML VIAL ONE (10:45)
[2020-12-28] MEDS ORDERED: ALBUMIN 25% 25 GM/100 ML VIAL IV ONE (10:45)
[2020-12-28] MEDS ORDERED: MANNITOL 100 GM/500 ML BAG IV ONE (10:46)
[2020-12-28] MEDS ORDERED: FUROSEMIDE 20 MG/2 ML VIAL ONE ×2 (10:46→10:51)
[2020-12-28] MEDS ORDERED: PROTAMINE SULFATE 250 MG/25 ML VIAL IV ONE (10:46)
[2020-12-28] MEDS ORDERED: HEPARIN 10,000 UNIT/10 ML VIAL ONE (10:46)
[2020-12-28] MEDS ORDERED: SODIUM BICARBONATE 50 MEQ/50 ML VIAL IV ONE (10:46)
[2020-12-28] MEDS ORDERED: PROTAMINE SULFATE 50 MG/5 ML VIAL IV ONE (10:51)
[2020-12-28] MEDS ORDERED: POTASSIUM CHLORIDE 20 MEQ/10 ML VIAL ONE (10:52)
[2020-12-28] MEDS ORDERED: INSULIN REGULAR 100 UNIT/ML IV ONE (11:13)
[2020-12-28] MEDS ORDERED: MORPHINE 10 MG/1 ML VIAL IV PRN (11:13)
[2020-12-28] MEDS ORDERED: VECURONIUM 10 MG VIAL IV PRN ×2 (11:13)
[2020-12-28] MEDS ORDERED: PHENYLEPHRINE DRIP 40 MG/250 ML PREMIX IV PRN (11:13)
[2020-12-28] MEDS ORDERED: MAGNESIUM SULF RIDER 4 GM in PREMIX 1 EACH IV PRN (11:13)
[2020-12-28] MEDS ORDERED: INSULIN REGULAR 100 UNIT/ML IV PRN (11:13)
[2020-12-28] MEDS ORDERED: ACETAMINOPHEN 650 MG SUPP RECTAL PRN (11:13)
[2020-12-28] MEDS ORDERED: CHLORHEXIDINE 4% SOLN 118 ML BOTTLE TOP PRN (11:13)
[2020-12-28] MEDS ORDERED: POTASSIUM CHLORIDE RIDER 10 MEQ in PREMIX 1 EACH IV PRN (11:13)
[2020-12-28] MEDS ORDERED: MAGNESIUM SULF RIDER 2 GM in PREMIX 1 EACH IV PRN (11:13)
[2020-12-28] MEDS ORDERED: CALCIUM CHLORIDE 1,000 MG/10 ML SYRINGE IV PRN (11:13)
[2020-12-28] MEDS ORDERED: MIDAZOLAM 2 MG/2 ML VIAL IV PRN (11:13)
[2020-12-28] MEDS ORDERED: ONDANSETRON 4 MG/2 ML VIAL IV PRN (11:13)
[2020-12-28] MEDS ORDERED: INSULIN REGULAR DRIP 100 ML IV SCH (11:13)
[2020-12-28] MEDS ORDERED: DEXTROSE 50% 25 GM/50 ML VIAL IV PRN ×2 (11:13)
[2020-12-28] MEDS ORDERED: NITROPRUSSIDE 100 MG in DEXTROSE 5% 250 ML IV PRN (11:13)
[2020-12-28] MEDS ORDERED: MIDAZOLAM 10 MG/2 ML VIAL IV PRN (11:13)
[2020-12-28] MEDS: SODIUM CHLORIDE 0.45% 1,000 ML IV SCH ×2 (11:30)
[2020-12-28] MEDS ORDERED: NITROGLYCERIN DRIP 50 MG/250 ML BOTTLE IV ONE (11:49)
[2020-12-28] MEDS ORDERED: HEPARIN/NACL 0.9% 2 UNITS/ML 500 ML IV ONE (11:49)
[2020-12-28 12:03] LABS: ABG Base Excess 0.1 MMOL/L (-2.5-2.5); ABG HCO3 24.5 MMOL/L (20-26); ABG Oxygen Saturation 99.3 % (95-100); ABG PCO2 41.9 MM HG (35-48); ABG PH 7.386 (7.35-7.45); ABG TCO2 22.8 MMOL/L (23-27); Basophils % 0.1 % (0.0-0.8); Glucose Heart Surgery 155 MG/DL (74-106); Hematocrit 30.6 VOL% (35.7-47.0); Hematocrit Heart Surgery 31.9 PERCENT (37-47); Hemoglobin Heart Surgery 10.3 G/DL (12.0-16.0); Immature Granulocytes % 1.2 %; Immature Granulocytes Absolute 0.19 #; Lymphocytes # 1.8 10*3/uL (1.4-4.0); Lymphocytes % 11.4 % (21.3-54.2); Mean Corpuscular HGB Conc 32.7 GM/DL (32-36); Mean Platelet Volume 9.9 FL (9.6-12.0); Monocytes % 5.2 % (1.7-12.7); Neutrophils % 82.1 % (38.7-73.9); Platelet Count 193 T/CUMM (130-400); Potassium Heart/CVR 3.7 MMOL/L (3.5-5.1); White Blood Count 15.9 T/CUMM (4-12)
[2020-12-28] MEDS: POTASSIUM CHLORIDE RIDER 20 MEQ in PREMIX 1 EACH IV PRN ×6 (12:10→18:20)
[2020-12-28 12:13] LABS: INR 1.1; PT Patient Result 11.9 SECS (9.8-11.9); Partial Thromboplastin Time 33.4 SECS (23.9-33.8)
[2020-12-28] MEDS: ALBUMIN 5% 12.5 GM in PREMIX 1 EACH IV PRN ×3 (12:20→22:08)
[2020-12-28 12:27] LABS: CKMB % 8.2 %
[2020-12-28 12:34] LABS: Troponin I 4.05 NG/ML (0.00-0.045)
[2020-12-28] MEDS: LACTATED RINGERS 250 ML IV PRN ×2 (13:00→16:30)
[2020-12-28 13:16] LABS: Albumin 3.3 G/DL (3.4-5.0); Bilirubin,Total 1.4 MG/DL (0.2-1.0); Calcium 8.8 MG/DL (8.5-10.1); Osmolality,Calculated 288.7 MOS/KG (273-304); Potassium 3.7 MMOL/L (3.5-5.1); Total Protein 5.5 G/DL (6.4-8.3)
[2020-12-28 13:27] LABS: ABG Base Excess 0.1 MMOL/L (-2.5-2.5); ABG HCO3 24.5 MMOL/L (20-26); ABG Oxygen Saturation 97.6 % (95-100); ABG PCO2 40.4 MM HG (35-48); ABG PH 7.398 (7.35-7.45); ABG PO2 97.4 MM HG (80-95); ABG TCO2 22.9 MMOL/L (23-27); Glucose Heart Surgery 175 MG/DL (74-106); Hematocrit Heart Surgery 28.5 PERCENT (37-47); Hemoglobin Heart Surgery 9.2 G/DL (12.0-16.0); Potassium Heart/CVR 4.2 MMOL/L (3.5-5.1)
[2020-12-28 15:15] LABS: ABG Base Excess -0.3 MMOL/L (-2.5-2.5); ABG HCO3 24.2 MMOL/L (20-26); ABG Oxygen Saturation 96.9 % (95-100); ABG PCO2 44.4 MM HG (35-48); ABG PH 7.362 (7.35-7.45); ABG PO2 99.1 MM HG (80-95); ABG TCO2 23.4 MMOL/L (23-27); Glucose Heart Surgery 173 MG/DL (74-106); Hematocrit Heart Surgery 27.6 PERCENT (37-47); Hemoglobin Heart Surgery 8.9 G/DL (12.0-16.0); Potassium Heart/CVR 3.8 MMOL/L (3.5-5.1)
[2020-12-28] MEDS: MORPHINE 4 MG/1 ML VIAL IV PRN ×3 (17:30→22:41)
[2020-12-28 18:12] LABS: ABG Base Excess -1.5 MMOL/L (-2.5-2.5); ABG HCO3 23.1 MMOL/L (20-26); ABG Oxygen Saturation 94.5 % (95-100); ABG PCO2 44.8 MM HG (35-48); ABG PH 7.344 (7.35-7.45); ABG PO2 77.4 MM HG (80-95); ABG TCO2 22.2 MMOL/L (23-27); Glucose Heart Surgery 179 MG/DL (74-106); Hematocrit Heart Surgery 32.4 PERCENT (37-47); Hemoglobin Heart Surgery 10.5 G/DL (12.0-16.0); Potassium Heart/CVR 4.4 MMOL/L (3.5-5.1)
[2020-12-28] MEDS: CEFUROXIME INJ 1,500 MG in SYRINGE 1 EACH IV SCH (18:25)
[2020-12-28] MEDS: METOPROLOL TARTRATE 25 MG TABLET PO SCH ×2 (18:53→22:12)
[2020-12-28 18:57] LABS: CKMB % 7.3 %
[2020-12-28 18:58] LABS: Troponin I 3.15 NG/ML (0.00-0.045)
[2020-12-28 19:14] LABS: ABG Base Excess -2.3 MMOL/L (-2.5-2.5); ABG HCO3 22.5 MMOL/L (20-26); ABG Oxygen Saturation 98.5 % (95-100); ABG PCO2 52.1 MM HG (35-48); ABG PH 7.287 (7.35-7.45); ABG TCO2 22.9 MMOL/L (23-27); Glucose Heart Surgery 168 MG/DL (74-106); Hematocrit Heart Surgery 31.5 PERCENT (37-47); Hemoglobin Heart Surgery 10.2 G/DL (12.0-16.0); Potassium Heart/CVR 5.1 MMOL/L (3.5-5.1)
[2020-12-28 19:48] LABS: ABG Base Excess -1.7 MMOL/L (-2.5-2.5); ABG HCO3 22.9 MMOL/L (20-26); ABG Oxygen Saturation 94.9 % (95-100); ABG PCO2 44.6 MM HG (35-48); ABG PH 7.341 (7.35-7.45); Glucose Heart Surgery 190 MG/DL (74-106); Hematocrit Heart Surgery 32.2 PERCENT (37-47); Hemoglobin Heart Surgery 10.4 G/DL (12.0-16.0); Potassium Heart/CVR 4.5 MMOL/L (3.5-5.1)
[2020-12-28] MEDS ORDERED: DEXMEDETOMIDINE 400 MCG in SODIUM CHLORIDE 0.9% 96 ML IV PRN (20:16)
[2020-12-28 21:14] LABS: ABG HCO3 23.4 MMOL/L (20-26); ABG Oxygen Saturation 96.1 % (95-100); ABG PCO2 42.2 MM HG (35-48); ABG PH 7.361 (7.35-7.45); ABG PO2 94.9 MM HG (80-95); ABG TCO2 24.7 MMOL/L (23-27); Glucose Heart Surgery 141 MG/DL (74-106); Hemoglobin Heart Surgery 10.6 G/DL (12.0-16.0); Potassium Heart/CVR 4.3 MMOL/L (3.5-5.1)
[2020-12-28] MEDS ORDERED: FUROSEMIDE 40 MG/4 ML VIAL IV ONE (21:51)
[2020-12-28 21:57] LABS: ABG Base Excess -0.9 MMOL/L (-2.5-2.5); ABG HCO3 23.6 MMOL/L (20-26); ABG Oxygen Saturation 96.8 % (95-100); ABG PH 7.301 (7.35-7.45); ABG TCO2 23.9 MMOL/L (23-27); Glucose Heart Surgery 115 MG/DL (74-106); Hematocrit Heart Surgery 32.8 PERCENT (37-47); Hemoglobin Heart Surgery 10.6 G/DL (12.0-16.0); Potassium Heart/CVR 4.2 MMOL/L (3.5-5.1)
[2020-12-28 23:02] LABS: ABG Base Excess 1.4 MMOL/L (-2.5-2.5); ABG HCO3 25.7 MMOL/L (20-26); ABG PH 7.391 (7.35-7.45); ABG PO2 90.8 MM HG (80-95); Glucose Heart Surgery 151 MG/DL (74-106); Potassium Heart/CVR 4.3 MMOL/L (3.5-5.1)
[2020-12-29 00:13] LABS: ABG Base Excess 0.2 MMOL/L (-2.5-2.5); ABG HCO3 25.9 MMOL/L (20-26); ABG Oxygen Saturation 96.9 % (95-100); ABG PCO2 46.6 MM HG (35-48); ABG PH 7.363 (7.35-7.45); ABG PO2 105.5 MM HG (80-95); ABG TCO2 27.3 MMOL/L (23-27); Glucose Heart Surgery 204 MG/DL (74-106); Hemoglobin Heart Surgery 10.5 G/DL (12.0-16.0); Potassium Heart/CVR 3.8 MMOL/L (3.5-5.1)
[2020-12-29 00:31] LABS: ABG Base Excess -0.2 MMOL/L (-2.5-2.5); ABG HCO3 25.7 MMOL/L (20-26); ABG Oxygen Saturation 96.4 % (95-100); ABG PCO2 47.7 MM HG (35-48); ABG PO2 98.4 MM HG (80-95); ABG TCO2 27.2 MMOL/L (23-27); Glucose Heart Surgery 202 MG/DL (74-106); Hemoglobin Heart Surgery 10.5 G/DL (12.0-16.0)
[2020-12-29] MEDS: METOPROLOL TARTRATE 25 MG TABLET PO SCH ×2 (00:39→09:06)
[2020-12-29 01:18] LABS: ABG Base Excess -0.4 MMOL/L (-2.5-2.5); ABG Oxygen Saturation 95.9 % (95-100); ABG PH 7.372 (7.35-7.45); ABG PO2 90.6 MM HG (80-95); ABG TCO2 26.3 MMOL/L (23-27); Glucose Heart Surgery 190 MG/DL (74-106); Hemoglobin Heart Surgery 10.4 G/DL (12.0-16.0); Potassium Heart/CVR 3.6 MMOL/L (3.5-5.1)
[2020-12-29 02:16] LABS: ABG Base Excess -0.2 MMOL/L (-2.5-2.5); ABG HCO3 24.2 MMOL/L (20-26); ABG Oxygen Saturation 95.3 % (95-100); ABG PCO2 49.9 MM HG (35-48); ABG PH 7.329 (7.35-7.45); ABG PO2 82.3 MM HG (80-95); ABG TCO2 23.9 MMOL/L (23-27); Glucose Heart Surgery 168 MG/DL (74-106); Hemoglobin Heart Surgery 10.4 G/DL (12.0-16.0); Potassium Heart/CVR 4.1 MMOL/L (3.5-5.1)
[2020-12-29] MEDS: KETOROLAC 30 MG/1 ML VIAL IV PRN ×2 (02:16→09:50)
[2020-12-29 02:27] LABS: Basophils % 0.1 % (0.0-0.8); Hematocrit 30.9 VOL% (35.7-47.0); Hemoglobin 10.1 GM/DL (12.0-16.0); Immature Granulocytes % 0.8 %; Immature Granulocytes Absolute 0.13 #; Lymphocytes # 0.7 10*3/uL (1.4-4.0); Lymphocytes % 4.1 % (21.3-54.2); Mean Corpuscular HGB Conc 32.7 GM/DL (32-36); Mean Corpuscular Volume 90.9 FL (87-102); Mean Platelet Volume 10.2 FL (9.6-12.0); Monocytes % 4.4 % (1.7-12.7); Neutrophils % 90.6 % (38.7-73.9); Platelet Count 174 T/CUMM (130-400); Red Cell Distribution Width 14.4 % (9.3-17.3)
[2020-12-29 02:40] LABS: CKMB % 7.4 %
[2020-12-29] MEDS: ALBUMIN 5% 12.5 GM in PREMIX 1 EACH IV PRN (02:54)
[2020-12-29 02:59] LABS: Troponin I 4.01 NG/ML (0.00-0.045)
[2020-12-29 03:13] LABS: Albumin 4.3 G/DL (3.4-5.0); Bilirubin,Direct 0.21 MG/DL (0.0-0.20); Bilirubin,Total 0.8 MG/DL (0.2-1.0); Calcium 8.3 MG/DL (8.5-10.1); Osmolality,Calculated 285.1 MOS/KG (273-304); Potassium 4.2 MMOL/L (3.5-5.1); Total Protein 6.3 G/DL (6.4-8.3)
[2020-12-29 04:19] LABS: Band Neutrophils 2 % (0-10); Lymphocytes 5 % (20-55); Platelet Estimate Normal; Segmented Neutrophils 90 % (50-85); Total Cells Counted 100
[2020-12-29 04:20] LABS: Microcytosis Slight
[2020-12-29 04:21] LABS: Hypochromasia Slight; Polychromasia Slight; Stomatocytes Few
[2020-12-29] MEDS ORDERED: HYDROmorphone 2 MG/1 ML VIAL IV ONE (04:48)
[2020-12-29] MEDS: CEFUROXIME INJ 1,500 MG in SYRINGE 1 EACH IV SCH ×2 (06:52→17:55)
[2020-12-29] MEDS: CHLORHEXIDINE 0.12% ORAL RINSE 60 ML BOTTLE SWISH/SPIT SCH ×3 (09:07→20:57)
[2020-12-29] MEDS ORDERED: ALUMINUM/MAGNES/SIMETH MAX STR 30 ML UDCUP PO PRN (11:14)
[2020-12-29] MEDS ORDERED: MAGNESIUM HYDROXIDE SUSP 30 ML UDCUP PO PRN (11:14)
[2020-12-29] MEDS ORDERED: DEXTROSE 50% 25 GM/50 ML VIAL IV PRN ×2 (11:14)
[2020-12-29] MEDS ORDERED: MAGNESIUM SULF RIDER 2 GM in PREMIX 1 EACH IV PRN (11:14)
[2020-12-29] MEDS ORDERED: GLUCAGON 1 MG VIAL IM PRN ×2 (11:14)
[2020-12-29] MEDS ORDERED: ONDANSETRON 4 MG/2 ML VIAL IV PRN (11:14)
[2020-12-29] MEDS ORDERED: MAGNESIUM SULF RIDER 4 GM in PREMIX 1 EACH IV PRN (11:14)
[2020-12-29] MEDS ORDERED: SODIUM CHLOR 0.45% KCL 20 MEQ 20 MEQ/1,000 ML BAG IV SCH (11:14)
[2020-12-29] MEDS: SODIUM CHLORIDE 0.45% 1,000 ML IV SCH ×2 (11:17)
[2020-12-29] MEDS ORDERED: INSULIN REGULAR 100 UNIT/ML SUBCUT SCH (11:30)
[2020-12-29] MEDS: CHOLECALCIFEROL 1,000 UNIT TABLET PO SCH (12:11)
[2020-12-29] MEDS: ASPIRIN EC 325 MG TABLET PO SCH (12:11)
[2020-12-29] MEDS: CITALOPRAM 40 MG TABLET PO SCH (12:12)
[2020-12-29] MEDS: DOCUSATE SODIUM 100 MG CAPSULE PO SCH (12:12)
[2020-12-29] MEDS: CALCIUM (CARBONATE)/VITAMIN D 600 MG-400 UNIT TABLET PO SCH ×2 (12:12→20:57)
[2020-12-29] MEDS: PANTOPRAZOLE 40 MG TABLET PO SCH (12:12)
[2020-12-29] MEDS: FERROUS SULFATE 325 MG TABLET PO SCH (12:12)
[2020-12-29 12:27] LABS: CKMB % 5.5 %
[2020-12-29 12:29] LABS: Troponin I 3.81 NG/ML (0.00-0.045)
[2020-12-29] MEDS: oxyCODONE/ACETAMINOPHEN 5-325 MG TABLET PO PRN (16:00)
[2020-12-29] MEDS: HYDROmorphone 2 MG/1 ML VIAL IV PRN (17:59)
[2020-12-29] MEDS ORDERED: FUROSEMIDE 40 MG/4 ML VIAL IV ONE (19:46)
[2020-12-29] MEDS: ALBUTEROL/IPRATROPIUM 3 ML NEB RESP TX PRN (20:02)
[2020-12-29] MEDS: MONTELUKAST 10 MG TABLET PO SCH (20:57)
[2020-12-29] MEDS: SIMVASTATIN 20 MG TABLET PO SCH (20:57)
[2020-12-30] MEDS: HYDROmorphone 2 MG/1 ML VIAL IV PRN
[2020-12-30] MEDS ORDERED: methylPREDNISolone SOD SUC 125 MG/2 ML VIAL IV ONE (02:44)
[2020-12-30] MEDS ORDERED: SODIUM CHLORIDE 0.9% IV ONE (03:00)
[2020-12-30] MEDS ORDERED: AMINOPHYLLINE IV ONE (03:00)
[2020-12-30] MEDS: KETOROLAC 30 MG/1 ML VIAL IV PRN ×2 (03:01→12:03)
[2020-12-30] MEDS ORDERED: AMINOPHYLLINE 500 MG in SODIUM CHLORIDE 0.9% 480 ML IV SCH (03:30)
[2020-12-30] MEDS ORDERED: FUROSEMIDE 40 MG/4 ML VIAL IV ONE (06:00)
[2020-12-30 06:02] LABS: Basophils % 0.1 % (0.0-0.8); Hematocrit 25.3 VOL% (35.7-47.0); Hemoglobin 8.2 GM/DL (12.0-16.0); Immature Granulocytes % 0.6 %; Lymphocytes # 0.8 10*3/uL (1.4-4.0); Lymphocytes % 4.9 % (21.3-54.2); Mean Corpuscular HGB Conc 32.4 GM/DL (32-36); Mean Corpuscular Volume 92.3 FL (87-102); Mean Platelet Volume 11.2 FL (9.6-12.0); Monocytes % 7.2 % (1.7-12.7); Neutrophils % 87.2 % (38.7-73.9); Platelet Count 172 T/CUMM (130-400); Red Blood Count 2.74 MC/CUMM (3.8-5.5); Red Cell Distribution Width 14.6 % (9.3-17.3); White Blood Count 16.6 T/CUMM (4-12)
[2020-12-30 06:23] LABS: Albumin 3.5 G/DL (3.4-5.0); Bilirubin,Direct 0.19 MG/DL (0.0-0.20); Bilirubin,Total 1.3 MG/DL (0.2-1.0); Calcium 8.5 MG/DL (8.5-10.1); Osmolality,Calculated 282.4 MOS/KG (273-304); Potassium 3.8 MMOL/L (3.5-5.1); Total Protein 6.2 G/DL (6.4-8.3)
[2020-12-30 06:25] LABS: Albumin 3.5 G/DL (3.4-5.0); Bilirubin,Direct 0.25 MG/DL (0.0-0.20); Bilirubin,Indirect 0.9 MG/DL (0.0-1.0); Bilirubin,Total 1.1 MG/DL (0.2-1.0); CKMB % 4.2 %; Total Protein 6.2 G/DL (6.4-8.3)
[2020-12-30 06:37] LABS: Troponin I 5.77 NG/ML (0.00-0.045)
[2020-12-30 07:28] LABS: Anisocytosis 1+; Band Neutrophils 9 % (0-10); Lymphocytes 2 % (20-55); Platelet Estimate Normal; Segmented Neutrophils 80 % (50-85); Total Cells Counted 100
[2020-12-30] MEDS: DOCUSATE SODIUM 100 MG CAPSULE PO SCH (09:03)
[2020-12-30] MEDS: CALCIUM (CARBONATE)/VITAMIN D 600 MG-400 UNIT TABLET PO SCH ×2 (09:03→21:39)
[2020-12-30] MEDS: ASPIRIN EC 325 MG TABLET PO SCH (09:03)
[2020-12-30] MEDS: FERROUS SULFATE 325 MG TABLET PO SCH (09:03)
[2020-12-30] MEDS: PANTOPRAZOLE 40 MG TABLET PO SCH (09:04)
[2020-12-30] MEDS: CITALOPRAM 40 MG TABLET PO SCH (09:04)
[2020-12-30] MEDS: CHOLECALCIFEROL 1,000 UNIT TABLET PO SCH (09:05)
[2020-12-30] MEDS: methylPREDNISolone SOD SUC 125 MG/2 ML VIAL IV SCH ×3 (09:06→21:40)
[2020-12-30] MEDS: CHLORHEXIDINE 0.12% ORAL RINSE 60 ML BOTTLE SWISH/SPIT SCH ×2 (09:19→21:40)
[2020-12-30] MEDS ORDERED: AMIODARONE INJ 150 MG in DEXTROSE 5% 100 ML IV ONE (11:43)
[2020-12-30] MEDS ORDERED: AMIODARONE INJ 450 MG in DEXTROSE 5% 241 ML IV SCH (12:00)
[2020-12-30] MEDS: INSULIN REGULAR 100 UNIT/ML SUBCUT SCH ×2 (17:00→21:38)
[2020-12-30] MEDS: AMIODARONE INJ 450 MG in DEXTROSE 5% 241 ML IV SCH (19:57)
[2020-12-30] MEDS ORDERED: SODIUM CHLORIDE 0.9% 1,000 ML IV PRN (21:20)
[2020-12-30] MEDS: MONTELUKAST 10 MG TABLET PO SCH (21:38)
[2020-12-30] MEDS: SIMVASTATIN 20 MG TABLET PO SCH (21:38)
[2020-12-30] MEDS: ZALEPLON 5 MG CAPSULE PO PRN (21:38)
[2020-12-30] MEDS: METOPROLOL TARTRATE 25 MG TABLET PO SCH (21:39)
[2020-12-31] MEDS: INSULIN REGULAR 100 UNIT/ML SUBCUT SCH ×6 (01:37→21:18)
[2020-12-31] MEDS ORDERED: FUROSEMIDE 40 MG/4 ML VIAL IV ONE (04:24)
[2020-12-31] MEDS: methylPREDNISolone SOD SUC 125 MG/2 ML VIAL IV SCH ×2 (04:45→10:27)
[2020-12-31] MEDS: oxyCODONE/ACETAMINOPHEN 5-325 MG TABLET PO PRN ×2 (04:54→21:20)
[2020-12-31] MEDS: AMIODARONE INJ 450 MG in DEXTROSE 5% 241 ML IV SCH ×2 (06:11→11:52)
[2020-12-31] MEDS: ASPIRIN EC 325 MG TABLET PO SCH (10:26)
[2020-12-31] MEDS: PANTOPRAZOLE 40 MG TABLET PO SCH (10:26)
[2020-12-31] MEDS: CITALOPRAM 40 MG TABLET PO SCH (10:26)
[2020-12-31] MEDS: CALCIUM (CARBONATE)/VITAMIN D 600 MG-400 UNIT TABLET PO SCH ×2 (10:26→21:18)
[2020-12-31] MEDS: CHOLECALCIFEROL 1,000 UNIT TABLET PO SCH (10:26)
[2020-12-31] MEDS: FERROUS SULFATE 325 MG TABLET PO SCH (10:27)
[2020-12-31] MEDS: DOCUSATE SODIUM 100 MG CAPSULE PO SCH (10:27)
[2020-12-31 10:47] LABS: Basophils % 0.1 % (0.0-0.8); Hematocrit 38.8 VOL% (35.7-47.0); Hemoglobin 12.5 GM/DL (12.0-16.0); Immature Granulocytes % 1.1 %; Immature Granulocytes Absolute 0.22 #; Lymphocytes # 0.8 10*3/uL (1.4-4.0); Lymphocytes % 4.3 % (21.3-54.2); Mean Corpuscular HGB Conc 32.2 GM/DL (32-36); Mean Platelet Volume 10.7 FL (9.6-12.0); Monocytes % 5.7 % (1.7-12.7); NRBC # 0.03 10*3/uL; Neutrophils % 88.8 % (38.7-73.9); Platelet Count 248 T/CUMM (130-400); Red Blood Count 4.36 MC/CUMM (3.8-5.5); Red Cell Distribution Width 15.9 % (9.3-17.3); White Blood Count 19.5 T/CUMM (4-12)
[2020-12-31] MEDS: METOPROLOL TARTRATE 25 MG TABLET PO SCH ×2 (10:47→21:19)
[2020-12-31] MEDS: CHLORHEXIDINE 0.12% ORAL RINSE 60 ML BOTTLE SWISH/SPIT SCH ×2 (10:48→21:21)
[2020-12-31 11:13] LABS: Albumin 3.6 G/DL (3.4-5.0); Bilirubin,Direct 0.28 MG/DL (0.0-0.20); Bilirubin,Total 1.3 MG/DL (0.2-1.0); Calcium 9.5 MG/DL (8.5-10.1); Osmolality,Calculated 286.4 MOS/KG (273-304); Potassium 3.3 MMOL/L (3.5-5.1)
[2020-12-31 11:16] LABS: Albumin 3.6 G/DL (3.4-5.0); Bilirubin,Direct 0.31 MG/DL (0.0-0.20); Bilirubin,Total 1.3 MG/DL (0.2-1.0); CKMB % 4.9 %; Total Protein 7.1 G/DL (6.4-8.3)
[2020-12-31 11:18] LABS: Troponin I 7.43 NG/ML (0.00-0.045)
[2020-12-31 11:21] LABS: Anisocytosis 1+; Band Neutrophils 14 % (0-10); Lymphocytes 2 % (20-55); Metamyelocytes 1 %; Segmented Neutrophils 78 % (50-85); Total Cells Counted 100
[2020-12-31] MEDS: DILTIAZEM 30 MG TABLET PO SCH ×3 (13:52→21:19)
[2020-12-31] MEDS: POTASSIUM CHLORIDE 20 MEQ TABLET PO PRN (21:19)
[2020-12-31] MEDS: MONTELUKAST 10 MG TABLET PO SCH (21:19)
[2020-12-31] MEDS: predniSONE 10 MG TABLET PO SCH (21:20)
[2020-12-31] MEDS: SIMVASTATIN 20 MG TABLET PO SCH (21:20)
[2021-01-01] MEDS: INSULIN REGULAR 100 UNIT/ML SUBCUT SCH ×5 (00:41→21:13)
[2021-01-01] MEDS: POTASSIUM CHLORIDE 20 MEQ TABLET PO PRN ×3 (00:58→09:54)
[2021-01-01] MEDS: ALBUTEROL/IPRATROPIUM 3 ML NEB RESP TX PRN ×3 (01:05→21:23)
[2021-01-01] MEDS: AMIODARONE INJ 450 MG in DEXTROSE 5% 241 ML IV SCH ×2 (02:17→18:44)
[2021-01-01 05:51] LABS: Basophils % 0.2 % (0.0-0.8); Hematocrit 36.3 VOL% (35.7-47.0); Hemoglobin 11.6 GM/DL (12.0-16.0); Immature Granulocytes % 1.1 %; Immature Granulocytes Absolute 0.17 #; Lymphocytes # 0.9 10*3/uL (1.4-4.0); Lymphocytes % 5.7 % (21.3-54.2); Mean Corpuscular Volume 88.8 FL (87-102); Monocytes % 7.8 % (1.7-12.7); NRBC # 0.04 10*3/uL; Neutrophils % 85.2 % (38.7-73.9); Platelet Count 253 T/CUMM (130-400); Red Blood Count 4.09 MC/CUMM (3.8-5.5); White Blood Count 15.8 T/CUMM (4-12)
[2021-01-01 06:02] LABS: Calcium 9.3 MG/DL (8.5-10.1); Potassium 4.1 MMOL/L (3.5-5.1)
[2021-01-01] MEDS: CITALOPRAM 40 MG TABLET PO SCH (09:38)
[2021-01-01] MEDS: DILTIAZEM 30 MG TABLET PO SCH ×4 (09:49→20:16)
[2021-01-01] MEDS: CHOLECALCIFEROL 1,000 UNIT TABLET PO SCH (09:51)
[2021-01-01] MEDS: predniSONE 10 MG TABLET PO SCH ×2 (09:52→20:16)
[2021-01-01] MEDS: CALCIUM (CARBONATE)/VITAMIN D 600 MG-400 UNIT TABLET PO SCH ×2 (09:52→20:16)
[2021-01-01] MEDS: METOPROLOL TARTRATE 25 MG TABLET PO SCH ×2 (09:53→20:19)
[2021-01-01] MEDS: PANTOPRAZOLE 40 MG TABLET PO SCH (09:53)
[2021-01-01] MEDS: ASPIRIN EC 325 MG TABLET PO SCH (09:53)
[2021-01-01] MEDS: FERROUS SULFATE 325 MG TABLET PO SCH (09:55)
[2021-01-01] MEDS: DOCUSATE SODIUM 100 MG CAPSULE PO SCH (09:55)
[2021-01-01] MEDS: CHLORHEXIDINE 0.12% ORAL RINSE 60 ML BOTTLE SWISH/SPIT SCH ×2 (10:02→20:16)
[2021-01-01] MEDS: oxyCODONE/ACETAMINOPHEN 5-325 MG TABLET PO PRN (12:38)
[2021-01-01] MEDS: SIMVASTATIN 20 MG TABLET PO SCH (20:16)
[2021-01-01] MEDS: MONTELUKAST 10 MG TABLET PO SCH (20:16)
[2021-01-01] MEDS: ZALEPLON 5 MG CAPSULE PO PRN (21:43)
[2021-01-02] MEDS: ALBUTEROL/IPRATROPIUM 3 ML NEB RESP TX PRN ×2 (05:21→23:17)
[2021-01-02] MEDS: AMIODARONE INJ 450 MG in DEXTROSE 5% 241 ML IV SCH ×3 (06:18→21:14)
[2021-01-02 06:24] LABS: Basophils # 0.1 10*3/uL (0.0-0.2); Basophils % 0.5 % (0.0-0.8); Hematocrit 36.5 VOL% (35.7-47.0); Hemoglobin 11.9 GM/DL (12.0-16.0); Immature Granulocytes % 2.4 %; Immature Granulocytes Absolute 0.35 #; Lymphocytes # 1.7 10*3/uL (1.4-4.0); Lymphocytes % 11.2 % (21.3-54.2); Mean Corpuscular HGB Conc 32.6 GM/DL (32-36); Mean Corpuscular Volume 89.9 FL (87-102); Mean Platelet Volume 11.2 FL (9.6-12.0); Monocytes % 8.4 % (1.7-12.7); NRBC # 0.07 10*3/uL; Neutrophils % 77.5 % (38.7-73.9); Platelet Count 276 T/CUMM (130-400); Red Blood Count 4.06 MC/CUMM (3.8-5.5); White Blood Count 14.7 T/CUMM (4-12)
[2021-01-02 06:51] LABS: Calcium 8.7 MG/DL (8.5-10.1); Osmolality,Calculated 287.4 MOS/KG (273-304)
[2021-01-02 06:58] LABS: Alanine Aminotransferase 25 U/L (13-56); Alkaline Phosphatase 68 U/L (45-117); Aspartate Amino Transferase 22 U/L (0-37); Bilirubin,Indirect 1.5 MG/DL (0.0-1.0); Blood Urea Nitrogen 22 MG/DL (7-18); Calcium 8.7 MG/DL (8.5-10.1); Carbon Dioxide 28 MMOL/L (21-32); Estimated Glom Filtration Rate 95 ML/MIN; Glucose 174 MG/DL (74-106); Osmolality,Calculated 287.3 MOS/KG (273-304); Potassium 3.9 MMOL/L (3.5-5.1); Sodium 141 MMOL/L (136-145); Total Protein 6.3 G/DL (6.4-8.3)
[2021-01-02] MEDS: INSULIN REGULAR 100 UNIT/ML SUBCUT SCH ×4 (09:17→21:14)
[2021-01-02] MEDS: CALCIUM (CARBONATE)/VITAMIN D 600 MG-400 UNIT TABLET PO SCH ×2 (09:18→21:12)
[2021-01-02] MEDS: DOCUSATE SODIUM 100 MG CAPSULE PO SCH (09:19)
[2021-01-02] MEDS: ASPIRIN EC 325 MG TABLET PO SCH (09:19)
[2021-01-02] MEDS: DILTIAZEM 30 MG TABLET PO SCH ×4 (09:19→21:11)
[2021-01-02] MEDS: CHOLECALCIFEROL 1,000 UNIT TABLET PO SCH (09:19)
[2021-01-02] MEDS: POTASSIUM CHLORIDE 20 MEQ TABLET PO PRN ×2 (09:21→12:00)
[2021-01-02] MEDS: predniSONE 10 MG TABLET PO SCH ×2 (09:21→21:10)
[2021-01-02] MEDS: METOPROLOL TARTRATE 25 MG TABLET PO SCH ×2 (09:22→21:10)
[2021-01-02] MEDS: FERROUS SULFATE 325 MG TABLET PO SCH (09:23)
[2021-01-02] MEDS: CITALOPRAM 40 MG TABLET PO SCH (09:23)
[2021-01-02] MEDS: PANTOPRAZOLE 40 MG TABLET PO SCH (09:23)
[2021-01-02] MEDS: CHLORHEXIDINE 0.12% ORAL RINSE 60 ML BOTTLE SWISH/SPIT SCH ×2 (10:07→21:14)
[2021-01-02] MEDS: FUROSEMIDE 40 MG/4 ML VIAL IV SCH (14:32)
[2021-01-02] MEDS: MONTELUKAST 10 MG TABLET PO SCH (21:10)
[2021-01-02] MEDS: ZALEPLON 5 MG CAPSULE PO PRN (21:10)
[2021-01-02] MEDS: SIMVASTATIN 20 MG TABLET PO SCH (21:10)
[2021-01-03] MEDS: AMIODARONE INJ 450 MG in DEXTROSE 5% 241 ML IV SCH ×2 (01:06→12:28)
[2021-01-03 05:43] LABS: Basophils % 0.3 % (0.0-0.8); Hematocrit 38.1 VOL% (35.7-47.0); Immature Granulocytes % 3.5 %; Lymphocytes # 1.2 10*3/uL (1.4-4.0); Lymphocytes % 8.5 % (21.3-54.2); Mean Corpuscular HGB Conc 31.5 GM/DL (32-36); Mean Corpuscular Volume 90.9 FL (87-102); Mean Platelet Volume 10.7 FL (9.6-12.0); Monocytes % 6.1 % (1.7-12.7); NRBC # 0.02 10*3/uL; Neutrophils % 81.6 % (38.7-73.9); Platelet Count 289 T/CUMM (130-400); Red Blood Count 4.19 MC/CUMM (3.8-5.5); Red Cell Distribution Width 15.9 % (9.3-17.3); White Blood Count 14.3 T/CUMM (4-12)
[2021-01-03 05:58] LABS: Calcium 8.5 MG/DL (8.5-10.1); Osmolality,Calculated 281.7 MOS/KG (273-304)
[2021-01-03 06:07] LABS: Alanine Aminotransferase 21 U/L (13-56); Albumin 2.7 G/DL (3.4-5.0); Alkaline Phosphatase 72 U/L (45-117); Aspartate Amino Transferase 23 U/L (0-37); Bilirubin,Indirect 1.7 MG/DL (0.0-1.0); Blood Urea Nitrogen 20 MG/DL (7-18); Calcium 8.3 MG/DL (8.5-10.1); Carbon Dioxide 27 MMOL/L (21-32); Estimated Glom Filtration Rate 102 ML/MIN; Glucose 171 MG/DL (74-106); Osmolality,Calculated 285.4 MOS/KG (273-304); Sodium 140 MMOL/L (136-145)
[2021-01-03] MEDS: ASPIRIN EC 325 MG TABLET PO SCH (09:19)
[2021-01-03] MEDS: predniSONE 10 MG TABLET PO SCH ×2 (09:19→21:13)
[2021-01-03] MEDS: CHOLECALCIFEROL 1,000 UNIT TABLET PO SCH (09:19)
[2021-01-03] MEDS: DILTIAZEM 30 MG TABLET PO SCH ×4 (09:19→21:14)
[2021-01-03] MEDS: METOPROLOL TARTRATE 25 MG TABLET PO SCH ×2 (09:19→21:16)
[2021-01-03] MEDS: DOCUSATE SODIUM 100 MG CAPSULE PO SCH (09:19)
[2021-01-03] MEDS: CALCIUM (CARBONATE)/VITAMIN D 600 MG-400 UNIT TABLET PO SCH ×2 (09:19→21:13)
[2021-01-03] MEDS: CITALOPRAM 40 MG TABLET PO SCH (09:19)
[2021-01-03] MEDS: PANTOPRAZOLE 40 MG TABLET PO SCH (09:19)
[2021-01-03] MEDS: FERROUS SULFATE 325 MG TABLET PO SCH (09:19)
[2021-01-03] MEDS: FUROSEMIDE 40 MG/4 ML VIAL IV SCH (09:20)
[2021-01-03] MEDS: INSULIN REGULAR 100 UNIT/ML SUBCUT SCH ×4 (09:28→21:15)
[2021-01-03] MEDS: CHLORHEXIDINE 0.12% ORAL RINSE 60 ML BOTTLE SWISH/SPIT SCH ×2 (09:29→21:15)
[2021-01-03] MEDS: AMIODARONE 200 MG TABLET PO SCH ×2 (10:00→21:14)
[2021-01-03] MEDS: GABAPENTIN 400 MG CAPSULE PO SCH ×2 (14:15→21:15)
[2021-01-03] MEDS: metFORMIN 500 MG TABLET PO SCH (17:08)
[2021-01-03] MEDS: SIMVASTATIN 20 MG TABLET PO SCH (21:13)
[2021-01-03] MEDS: MONTELUKAST 10 MG TABLET PO SCH (21:13)
[2021-01-03] MEDS: ZALEPLON 5 MG CAPSULE PO PRN (21:17)
[2021-01-04 05:57] LABS: Basophils # 0.1 10*3/uL (0.0-0.2); Basophils % 0.6 % (0.0-0.8); Hematocrit 39.5 VOL% (35.7-47.0); Hemoglobin 12.2 GM/DL (12.0-16.0); Immature Granulocytes % 4.3 %; Immature Granulocytes Absolute 0.74 #; Lymphocytes # 0.9 10*3/uL (1.4-4.0); Lymphocytes % 5.3 % (21.3-54.2); Mean Corpuscular HGB Conc 30.9 GM/DL (32-36); Mean Corpuscular Volume 90.8 FL (87-102); Mean Platelet Volume 10.9 FL (9.6-12.0); Monocytes % 5.5 % (1.7-12.7); Neutrophils % 84.3 % (38.7-73.9); Platelet Count 356 T/CUMM (130-400); Red Blood Count 4.35 MC/CUMM (3.8-5.5); White Blood Count 17.4 T/CUMM (4-12)
[2021-01-04 06:19] LABS: Anisocytosis 2+; Band Neutrophils 6 % (0-10); Lymphocytes 8 % (20-55); Macrocytosis Slight; Platelet Estimate Normal; Polychromasia Slight; Segmented Neutrophils 82 % (50-85); Smudge Cells Few; Total Cells Counted 100
[2021-01-04 06:29] LABS: Calcium 8.8 MG/DL (8.5-10.1); Osmolality,Calculated 280.7 MOS/KG (273-304); Potassium 4.1 MMOL/L (3.5-5.1)
[2021-01-04] MEDS: metFORMIN 500 MG TABLET PO SCH ×2 (09:50→16:58)
[2021-01-04] MEDS: GABAPENTIN 400 MG CAPSULE PO SCH ×3 (09:50→21:27)
[2021-01-04] MEDS: AMIODARONE 200 MG TABLET PO SCH ×2 (09:50→21:27)
[2021-01-04] MEDS: DOCUSATE SODIUM 100 MG CAPSULE PO SCH (09:50)
[2021-01-04] MEDS: CALCIUM (CARBONATE)/VITAMIN D 600 MG-400 UNIT TABLET PO SCH ×2 (09:50→21:27)
[2021-01-04] MEDS: ASPIRIN EC 325 MG TABLET PO SCH (09:50)
[2021-01-04] MEDS: FERROUS SULFATE 325 MG TABLET PO SCH (09:50)
[2021-01-04] MEDS: PANTOPRAZOLE 40 MG TABLET PO SCH (09:51)
[2021-01-04] MEDS: predniSONE 10 MG TABLET PO SCH ×2 (09:51→21:27)
[2021-01-04] MEDS: METOPROLOL TARTRATE 25 MG TABLET PO SCH ×2 (09:51→21:27)
[2021-01-04] MEDS: FUROSEMIDE 40 MG/4 ML VIAL IV SCH (09:51)
[2021-01-04] MEDS: CITALOPRAM 40 MG TABLET PO SCH (09:51)
[2021-01-04] MEDS: INSULIN REGULAR 100 UNIT/ML SUBCUT SCH ×4 (10:05→21:27)
[2021-01-04] MEDS: CHLORHEXIDINE 0.12% ORAL RINSE 60 ML BOTTLE SWISH/SPIT SCH ×2 (10:06→21:27)
[2021-01-04] MEDS: CHOLECALCIFEROL 1,000 UNIT TABLET PO SCH (10:06)
[2021-01-04] MEDS: SIMVASTATIN 20 MG TABLET PO SCH (21:27)
[2021-01-04] MEDS: ZALEPLON 5 MG CAPSULE PO PRN (21:27)
[2021-01-04] MEDS: MONTELUKAST 10 MG TABLET PO SCH (21:27)
[2021-01-05 05:55] LABS: Basophils % 0.3 % (0.0-0.8); Hematocrit 36.1 VOL% (35.7-47.0); Hemoglobin 11.2 GM/DL (12.0-16.0); Immature Granulocytes % 5.6 %; Immature Granulocytes Absolute 0.64 #; Lymphocytes # 0.6 10*3/uL (1.4-4.0); Lymphocytes % 5.3 % (21.3-54.2); Mean Corpuscular Volume 92.1 FL (87-102); Mean Platelet Volume 10.4 FL (9.6-12.0); Monocytes % 6.8 % (1.7-12.7); Platelet Count 318 T/CUMM (130-400); Red Blood Count 3.92 MC/CUMM (3.8-5.5); Red Cell Distribution Width 15.9 % (9.3-17.3); White Blood Count 11.5 T/CUMM (4-12)
[2021-01-05 06:26] LABS: Band Neutrophils 1 % (0-10); Lymphocytes 8 % (20-55); Platelet Estimate Adequate; Segmented Neutrophils 88 % (50-85); Total Cells Counted 100
[2021-01-05 06:29] LABS: Alanine Aminotransferase 19 U/L (13-56); Albumin 2.4 G/DL (3.4-5.0); Alkaline Phosphatase 67 U/L (45-117); Aspartate Amino Transferase 14 U/L (0-37); Blood Urea Nitrogen 20 MG/DL (7-18); Calcium 8.6 MG/DL (8.5-10.1); Carbon Dioxide 28 MMOL/L (21-32); Estimated Glom Filtration Rate 101 ML/MIN; Glucose 157 MG/DL (74-106); Osmolality,Calculated 275.1 MOS/KG (273-304); Potassium 3.9 MMOL/L (3.5-5.1); Sodium 135 MMOL/L (136-145); Total Protein 5.6 G/DL (6.4-8.3)
[2021-01-05 06:30] LABS: Troponin I 0.739 NG/ML (0.00-0.045)
[2021-01-05] MEDS: metFORMIN 500 MG TABLET PO SCH ×2 (07:54→17:12)
[2021-01-05] MEDS: INSULIN REGULAR 100 UNIT/ML SUBCUT SCH ×4 (08:26→20:16)
[2021-01-05] MEDS: GABAPENTIN 400 MG CAPSULE PO SCH ×3 (08:27→20:13)
[2021-01-05] MEDS: CALCIUM (CARBONATE)/VITAMIN D 600 MG-400 UNIT TABLET PO SCH ×2 (08:28→20:13)
[2021-01-05] MEDS: CHOLECALCIFEROL 1,000 UNIT TABLET PO SCH (08:28)
[2021-01-05] MEDS: AMIODARONE 200 MG TABLET PO SCH ×2 (08:29→20:13)
[2021-01-05] MEDS: POTASSIUM CHLORIDE 20 MEQ TABLET PO PRN ×2 (08:31→11:43)
[2021-01-05] MEDS: ASPIRIN EC 325 MG TABLET PO SCH (08:32)
[2021-01-05] MEDS: predniSONE 10 MG TABLET PO SCH (08:32)
[2021-01-05] MEDS: CITALOPRAM 40 MG TABLET PO SCH (08:33)
[2021-01-05] MEDS: DOCUSATE SODIUM 100 MG CAPSULE PO SCH (08:33)
[2021-01-05] MEDS: METOPROLOL TARTRATE 25 MG TABLET PO SCH ×2 (08:35→20:15)
[2021-01-05] MEDS: PANTOPRAZOLE 40 MG TABLET PO SCH (08:36)
[2021-01-05] MEDS: FERROUS SULFATE 325 MG TABLET PO SCH (08:36)
[2021-01-05] MEDS: FUROSEMIDE 40 MG/4 ML VIAL IV SCH (08:37)
[2021-01-05] MEDS: CHLORHEXIDINE 0.12% ORAL RINSE 60 ML BOTTLE SWISH/SPIT SCH ×2 (08:38→20:16)
[2021-01-05] MEDS: ZALEPLON 5 MG CAPSULE PO PRN (20:13)
[2021-01-05] MEDS: SIMVASTATIN 20 MG TABLET PO SCH (20:13)
[2021-01-05] MEDS: MONTELUKAST 10 MG TABLET PO SCH (20:13)
[2021-01-06 06:47] LABS: Calcium 8.8 MG/DL (8.5-10.1); Osmolality,Calculated 270.2 MOS/KG (273-304); Potassium 3.5 MMOL/L (3.5-5.1)
[2021-01-06] MEDS: CITALOPRAM 40 MG TABLET PO SCH (09:24)
[2021-01-06] MEDS: DOCUSATE SODIUM 100 MG CAPSULE PO SCH (09:25)
[2021-01-06] MEDS: metFORMIN 500 MG TABLET PO SCH ×2 (09:25→16:36)
[2021-01-06] MEDS: ACETAMINOPHEN 325 MG TABLET PO PRN (09:26)
[2021-01-06] MEDS: GABAPENTIN 400 MG CAPSULE PO SCH ×3 (09:27→21:09)
[2021-01-06] MEDS: FERROUS SULFATE 325 MG TABLET PO SCH (09:28)
[2021-01-06] MEDS: predniSONE 10 MG TABLET PO SCH (09:28)
[2021-01-06] MEDS: METOPROLOL TARTRATE 25 MG TABLET PO SCH ×2 (09:28→21:09)
[2021-01-06] MEDS: ASPIRIN EC 325 MG TABLET PO SCH (09:29)
[2021-01-06] MEDS: PANTOPRAZOLE 40 MG TABLET PO SCH (09:30)
[2021-01-06] MEDS: CHOLECALCIFEROL 1,000 UNIT TABLET PO SCH (09:30)
[2021-01-06] MEDS: CALCIUM (CARBONATE)/VITAMIN D 600 MG-400 UNIT TABLET PO SCH ×2 (09:30→21:09)
[2021-01-06] MEDS: POTASSIUM CHLORIDE 20 MEQ TABLET PO SCH (09:31)
[2021-01-06] MEDS: AMIODARONE 200 MG TABLET PO SCH ×2 (09:32→21:09)
[2021-01-06] MEDS: FUROSEMIDE 40 MG/4 ML VIAL IV SCH (09:36)
[2021-01-06] MEDS: INSULIN REGULAR 100 UNIT/ML SUBCUT SCH ×4 (09:38→22:39)
[2021-01-06] MEDS: CHLORHEXIDINE 0.12% ORAL RINSE 60 ML BOTTLE SWISH/SPIT SCH ×2 (11:11→21:44)
[2021-01-06] MEDS: MONTELUKAST 10 MG TABLET PO SCH (21:09)
[2021-01-06] MEDS: SIMVASTATIN 20 MG TABLET PO SCH (21:09)
[2021-01-06] MEDS: ZALEPLON 5 MG CAPSULE PO PRN (21:14)
[2021-01-07 04:46] LABS: Basophils % 0.2 % (0.0-0.8); Hematocrit 33.8 VOL% (35.7-47.0); Hemoglobin 10.8 GM/DL (12.0-16.0); Immature Granulocytes % 1.4 %; Immature Granulocytes Absolute 0.17 #; Lymphocytes # 1.1 10*3/uL (1.4-4.0); Lymphocytes % 8.4 % (21.3-54.2); Mean Corpuscular Volume 89.4 FL (87-102); Mean Platelet Volume 10.3 FL (9.6-12.0); Monocytes % 5.4 % (1.7-12.7); Neutrophils % 84.6 % (38.7-73.9); Platelet Count 265 T/CUMM (130-400); Red Blood Count 3.78 MC/CUMM (3.8-5.5); Red Cell Distribution Width 15.7 % (9.3-17.3); White Blood Count 12.4 T/CUMM (4-12)
[2021-01-07 05:09] LABS: Calcium 8.7 MG/DL (8.5-10.1); Potassium 4.2 MMOL/L (3.5-5.1)
[2021-01-07] MEDS: INSULIN REGULAR 100 UNIT/ML SUBCUT SCH ×4 (09:22→20:29)
[2021-01-07] MEDS: ASPIRIN EC 325 MG TABLET PO SCH (09:23)
[2021-01-07] MEDS: CALCIUM (CARBONATE)/VITAMIN D 600 MG-400 UNIT TABLET PO SCH ×2 (09:24→20:28)
[2021-01-07] MEDS: GABAPENTIN 400 MG CAPSULE PO SCH ×3 (09:25→20:27)
[2021-01-07] MEDS: CITALOPRAM 40 MG TABLET PO SCH (09:26)
[2021-01-07] MEDS: METOPROLOL TARTRATE 25 MG TABLET PO SCH ×2 (09:26→20:28)
[2021-01-07] MEDS: PANTOPRAZOLE 40 MG TABLET PO SCH (09:27)
[2021-01-07] MEDS: CHOLECALCIFEROL 1,000 UNIT TABLET PO SCH (09:27)
[2021-01-07] MEDS: metFORMIN 500 MG TABLET PO SCH ×2 (09:27→17:23)
[2021-01-07] MEDS: AMIODARONE 200 MG TABLET PO SCH ×2 (09:28→20:28)
[2021-01-07] MEDS: ACETAMINOPHEN 325 MG TABLET PO PRN ×2 (09:29→20:30)
[2021-01-07] MEDS: FERROUS SULFATE 325 MG TABLET PO SCH (09:30)
[2021-01-07] MEDS: FUROSEMIDE 40 MG/4 ML VIAL IV SCH (09:31)
[2021-01-07] MEDS: predniSONE 10 MG TABLET PO SCH (09:32)
[2021-01-07] MEDS: POTASSIUM CHLORIDE 20 MEQ TABLET PO SCH (09:33)
[2021-01-07] MEDS: DOCUSATE SODIUM 100 MG CAPSULE PO SCH (09:35)
[2021-01-07] MEDS: CHLORHEXIDINE 0.12% ORAL RINSE 60 ML BOTTLE SWISH/SPIT SCH ×2 (10:11→20:28)
[2021-01-07 14:20] LABS: Bilirubin,Urine Negative (Negative); Blood, Urine Negative (Negative); Glucose,Urine (UA) Negative (Negative); Hyaline Casts,Urine 3 /LPF (0-3); Ketones,Urine Negative (Negative); Mucus,Urine Occasional /LPF (Occasional); Nitrite,Urine Negative (Negative); Protein,Urine Negative; RBC,Urine 1 /HPF (0-4); Squamous Epithelial Cell,Urine Occasional /HPF (0-10); Urine Appearance CLEAR (Clear); Urine Color Yellow (Yellow); Urine Specific Gravity 1.006 (1.001-1.035); Urine Urobilinogen < 2.0 EU/DL (0.2-1.0); WBC,Urine 1 /HPF (0-6)
[2021-01-07] MEDS: ALBUTEROL/IPRATROPIUM 3 ML NEB RESP TX PRN (19:54)
[2021-01-07] MEDS: ZALEPLON 5 MG CAPSULE PO PRN (20:27)
[2021-01-07] MEDS: MONTELUKAST 10 MG TABLET PO SCH (20:27)
[2021-01-07] MEDS: SIMVASTATIN 20 MG TABLET PO SCH (20:28)
[2021-01-08 06:02] LABS: Basophils % 0.1 % (0.0-0.8); Hematocrit 35.6 VOL% (35.7-47.0); Hemoglobin 11.1 GM/DL (12.0-16.0); Immature Granulocytes % 1.4 %; Immature Granulocytes Absolute 0.18 #; Lymphocytes # 1.2 10*3/uL (1.4-4.0); Lymphocytes % 9.6 % (21.3-54.2); Mean Corpuscular HGB Conc 31.2 GM/DL (32-36); Mean Corpuscular Volume 91.5 FL (87-102); Mean Platelet Volume 10.5 FL (9.6-12.0); Monocytes % 4.3 % (1.7-12.7); Neutrophils % 84.6 % (38.7-73.9); Platelet Count 278 T/CUMM (130-400); Red Blood Count 3.89 MC/CUMM (3.8-5.5); Red Cell Distribution Width 15.8 % (9.3-17.3); White Blood Count 12.5 T/CUMM (4-12)
[2021-01-08 06:39] LABS: Calcium 8.6 MG/DL (8.5-10.1)
[2021-01-08] MEDS: INSULIN REGULAR 100 UNIT/ML SUBCUT SCH ×4 (07:29→21:13)
[2021-01-08] MEDS: FUROSEMIDE 40 MG/4 ML VIAL IV SCH (09:14)
[2021-01-08] MEDS: metFORMIN 500 MG TABLET PO SCH ×2 (10:07→16:39)
[2021-01-08] MEDS: CALCIUM (CARBONATE)/VITAMIN D 600 MG-400 UNIT TABLET PO SCH ×2 (10:08→21:06)
[2021-01-08] MEDS: ASPIRIN EC 325 MG TABLET PO SCH (10:08)
[2021-01-08] MEDS: CITALOPRAM 40 MG TABLET PO SCH (10:09)
[2021-01-08] MEDS: DOCUSATE SODIUM 100 MG CAPSULE PO SCH (10:09)
[2021-01-08] MEDS: FERROUS SULFATE 325 MG TABLET PO SCH (10:10)
[2021-01-08] MEDS: POTASSIUM CHLORIDE 20 MEQ TABLET PO SCH (10:10)
[2021-01-08] MEDS: AMIODARONE 200 MG TABLET PO SCH ×2 (10:10→21:06)
[2021-01-08] MEDS: predniSONE 10 MG TABLET PO SCH (10:11)
[2021-01-08] MEDS: GABAPENTIN 400 MG CAPSULE PO SCH ×3 (10:11→21:06)
[2021-01-08] MEDS: METOPROLOL TARTRATE 25 MG TABLET PO SCH ×2 (10:11→21:13)
[2021-01-08] MEDS: CHOLECALCIFEROL 1,000 UNIT TABLET PO SCH (10:12)
[2021-01-08] MEDS: PANTOPRAZOLE 40 MG TABLET PO SCH (10:12)
[2021-01-08] MEDS: CHLORHEXIDINE 0.12% ORAL RINSE 60 ML BOTTLE SWISH/SPIT SCH ×2 (10:16→21:10)
[2021-01-08] MEDS: SULFAMETHOX/TRIMETHOPRIM 800-160 MG TABLET PO SCH ×2 (14:13→21:06)
[2021-01-08] MEDS: ZALEPLON 5 MG CAPSULE PO PRN (21:06)
[2021-01-08] MEDS: SIMVASTATIN 20 MG TABLET PO SCH (21:07)
[2021-01-08] MEDS: MONTELUKAST 10 MG TABLET PO SCH (21:07)
[2021-01-09 05:58] LABS: Basophils % 0.2 % (0.0-0.8); Hemoglobin 10.8 GM/DL (12.0-16.0); Immature Granulocytes % 1.2 %; Immature Granulocytes Absolute 0.12 #; Lymphocytes % 10.1 % (21.3-54.2); Mean Corpuscular HGB Conc 32.7 GM/DL (32-36); Mean Corpuscular Volume 88.5 FL (87-102); Mean Platelet Volume 10.2 FL (9.6-12.0); Monocytes % 4.8 % (1.7-12.7); Neutrophils % 83.7 % (38.7-73.9); Platelet Count 274 T/CUMM (130-400); Red Blood Count 3.73 MC/CUMM (3.8-5.5); Red Cell Distribution Width 15.3 % (9.3-17.3); White Blood Count 9.7 T/CUMM (4-12)
[2021-01-09 06:15] LABS: Calcium 8.2 MG/DL (8.5-10.1); Osmolality,Calculated 266.2 MOS/KG (273-304); Potassium 4.2 MMOL/L (3.5-5.1)
[2021-01-09] MEDS: CHOLECALCIFEROL 1,000 UNIT TABLET PO SCH (08:34)
[2021-01-09] MEDS: metFORMIN 500 MG TABLET PO SCH ×2 (08:34→16:58)
[2021-01-09] MEDS: DOCUSATE SODIUM 100 MG CAPSULE PO SCH (08:34)
[2021-01-09] MEDS: ASPIRIN EC 325 MG TABLET PO SCH (08:35)
[2021-01-09] MEDS: AMIODARONE 200 MG TABLET PO SCH ×2 (08:35→21:24)
[2021-01-09] MEDS: POTASSIUM CHLORIDE 20 MEQ TABLET PO SCH (08:35)
[2021-01-09] MEDS: FERROUS SULFATE 325 MG TABLET PO SCH (08:35)
[2021-01-09] MEDS: PANTOPRAZOLE 40 MG TABLET PO SCH (08:35)
[2021-01-09] MEDS: METOPROLOL TARTRATE 25 MG TABLET PO SCH ×2 (08:35→21:33)
[2021-01-09] MEDS: FUROSEMIDE 40 MG/4 ML VIAL IV SCH (08:36)
[2021-01-09] MEDS: SULFAMETHOX/TRIMETHOPRIM 800-160 MG TABLET PO SCH ×2 (08:36→21:24)
[2021-01-09] MEDS: CITALOPRAM 40 MG TABLET PO SCH (08:36)
[2021-01-09] MEDS: GABAPENTIN 400 MG CAPSULE PO SCH ×3 (08:36→21:31)
[2021-01-09] MEDS: CALCIUM (CARBONATE)/VITAMIN D 600 MG-400 UNIT TABLET PO SCH ×2 (08:36→21:24)
[2021-01-09] MEDS: predniSONE 10 MG TABLET PO SCH (08:36)
[2021-01-09] MEDS: INSULIN REGULAR 100 UNIT/ML SUBCUT SCH ×4 (08:46→21:58)
[2021-01-09] MEDS ORDERED: NITROGLYCERIN SL 0.4 MG TABLET SL PRN (09:24)
[2021-01-09] MEDS ORDERED: POTASSIUM CHLORIDE 20 MEQ TABLET PO SCH (09:57)
[2021-01-09] MEDS: CHLORHEXIDINE 0.12% ORAL RINSE 60 ML BOTTLE SWISH/SPIT SCH ×2 (11:09→21:32)
[2021-01-09] MEDS ORDERED: ROSUVASTATIN 20 MG TABLET PO SCH (21:00)
[2021-01-09] MEDS: ZALEPLON 5 MG CAPSULE PO PRN (21:24)
[2021-01-09] MEDS: MONTELUKAST 10 MG TABLET PO SCH (21:24)
[2021-01-09] MEDS: ACETAMINOPHEN 325 MG TABLET PO PRN (21:31)
[2021-01-10 05:41] LABS: Basophils % 0.2 % (0.0-0.8); Eosinophils % 0.1 % (0.00-10.9); Hematocrit 33.9 VOL% (35.7-47.0); Immature Granulocytes % 1.2 %; Lymphocytes % 12.7 % (21.3-54.2); Mean Corpuscular HGB Conc 32.4 GM/DL (32-36); Mean Corpuscular Volume 88.5 FL (87-102); Mean Platelet Volume 10.5 FL (9.6-12.0); Monocytes % 5.3 % (1.7-12.7); Neutrophils % 80.5 % (38.7-73.9); Platelet Count 291 T/CUMM (130-400); Red Blood Count 3.83 MC/CUMM (3.8-5.5); Red Cell Distribution Width 15.7 % (9.3-17.3); White Blood Count 8.1 T/CUMM (4-12)
[2021-01-10 06:08] LABS: Calcium 8.5 MG/DL (8.5-10.1); Osmolality,Calculated 265.4 MOS/KG (273-304); Potassium 4.1 MMOL/L (3.5-5.1)
[2021-01-10] MEDS ORDERED: FUROSEMIDE 40 MG TABLET PO SCH (09:00)
[2021-01-10] MEDS: metFORMIN 500 MG TABLET PO SCH (09:19)
[2021-01-10] MEDS: SULFAMETHOX/TRIMETHOPRIM 800-160 MG TABLET PO SCH (09:19)
[2021-01-10] MEDS: CALCIUM (CARBONATE)/VITAMIN D 600 MG-400 UNIT TABLET PO SCH (09:20)
[2021-01-10] MEDS: DOCUSATE SODIUM 100 MG CAPSULE PO SCH (09:20)
[2021-01-10] MEDS: CITALOPRAM 40 MG TABLET PO SCH (09:20)
[2021-01-10] MEDS: FERROUS SULFATE 325 MG TABLET PO SCH (09:20)
[2021-01-10] MEDS: predniSONE 10 MG TABLET PO SCH (09:20)
[2021-01-10] MEDS: PANTOPRAZOLE 40 MG TABLET PO SCH (09:20)
[2021-01-10] MEDS: ASPIRIN EC 325 MG TABLET PO SCH (09:20)
[2021-01-10] MEDS: AMIODARONE 200 MG TABLET PO SCH (09:20)
[2021-01-10] MEDS: METOPROLOL TARTRATE 25 MG TABLET PO SCH (09:20)
[2021-01-10] MEDS: GABAPENTIN 400 MG CAPSULE PO SCH (09:21)
[2021-01-10] MEDS: CHLORHEXIDINE 0.12% ORAL RINSE 60 ML BOTTLE SWISH/SPIT SCH (09:21)
[2021-01-10] MEDS: CHOLECALCIFEROL 1,000 UNIT TABLET PO SCH (09:21)
[2021-01-10] MEDS: INSULIN REGULAR 100 UNIT/ML SUBCUT SCH ×2 (09:22→11:30)
[2021-01-10 12:20] VITALS: BP 97/50
== END 2021-01-10 12:23 | disposition home health service (06) | DRG 235 ==
LOC: N.4E 08:41 → N.CVR 12-28 11:13 → N.TELES 12-29 11:33